=== PATIENT | female | born 1945 | race Caucasian/White ===

== ENCOUNTER 2018-03-06 21:56 | Inpatient (IN) | payer MEDICARE, BC ==
[2018-03-06 22:34] LABS: CHLORIDE,CL 88 mmol/L (98-107); SODIUM,NA 129 mmol/L (136-145)
[2018-03-06] MEDS ORDERED: Insulin Regular, Human 100 Units/ML 3 ML Vial IV STA (23:22)
[2018-03-07] MEDS ORDERED: Warfarin 5 MG Tab PO ONE (00:14)
[2018-03-07] MEDS ORDERED: Calcium Carbonate 500 MG Tab.Chew PO PRN (00:20)
[2018-03-07] MEDS ORDERED: Ondansetron 4 MG Tab.DIS PO PRN (00:30)
[2018-03-07] MEDS ORDERED: Bisacodyl 5 MG Tab PO PRN (00:30)
[2018-03-07] MEDS ORDERED: Acetaminophen 325 MG Tab PO PRN (00:30)
[2018-03-07] MEDS ORDERED: MEPERIDINE HCL 50 MG PO PRN (00:33)
[2018-03-07] MEDS ORDERED: Insulin Regular, Human 100 Units/ML 3 ML Vial SUBCUT ONE ×2 (00:37→23:22)
[2018-03-07] MEDS ORDERED: Sodium Chloride 0.9% 1,000 ML IV ONE (00:39)
--- NOTE | 2018-03-07 00:44 | EDM.PDOC ---
ED HPI GENERAL MEDICAL PROBLEM - General Chief Complaint: General Stated Complaint: high blood sugar Time Seen by Provider: 03/06/18 22:50 Source of Information: Reports: Patient History Limitations: Reports: No Limitations - History of Present Illness INITIAL COMMENTS - FREE TEXT/NARRATIVE: Patient comes in complaining that home blood glucose meter was reading "hi". Recently started on Levemir insulin for Type 2 DM. Has only been checking her blood glucose once a day. Feels as though she has been eating a healthy diet, but admits to eating bread/grains daily. Has thought that her vision has been blurry at times over the past few weeks, and has had increased thirst. Says she has not noticed increased urination but adds that she has urinated frequently her whole life. No other new changes or complaints - Related Data Allergies Allergy/AdvReac Type Severity Reaction Status Date / Time ARYAN Inhibitors Allergy Cannot Verified 03/07/18 00:21 Remember aspirin Allergy Cannot Verified 03/07/18 00:21 Remember levothyroxine sodium Allergy Hives Verified 03/07/18 00:21 [From Synthroid] lisinopril Allergy Rash Verified 03/07/18 00:21 metformin Allergy Cannot Verified 03/07/18 00:21 Remember nitrofurantoin Allergy Cannot Verified 03/07/18 00:21 [From Macrobid] Remember nitrofurantoin Allergy Cannot Verified 03/07/18 00:21 macrocrystalline Remember [From Macrobid] NSAIDS (Non-Steroidal Allergy Cannot Verified 03/07/18 00:21 Anti-Inflamma Remember ramipril [From Altace] Allergy Cannot Verified 03/07/18 00:21 Remember Sulfa (Sulfonamide Allergy Hives Verified 03/07/18 00:21 Antibiotics) valsartan [From Diovan] Allergy Cannot Verified 03/07/18 00:21 Remember Home Meds: Home Meds Atenolol 50 mg PO BEDTIME 09/20/15 [History] Atenolol 50 mg PO DAILY 09/20/15 [History] Cholecalciferol (Vitamin D3) [Vitamin D] 2,000 unit PO DAILY 09/20/15 [History] Meperidine HCl [Demerol] 50 mg PO Q4H PRN 09/20/15 [History] Thyroid,Pork [[place] Thyroid] 15 mg PO DAILY 03/10/16 [History] Thyroid,Pork [[place] Thyroid] 60 mg PO DAILY 09/20/15 [History] Vitamin A 10,000 units PO DAILY 09/20/15 [History] Hydrochlorothiazide [Microzide] 25 mg PO DAILY 03/06/18 [History] Insulin Detemir [Levemir] 6 unit SQ ASDIRECTED 03/06/18 [History] Warfarin [Coumadin] 2.5 mg PO ASDIRECTED 03/06/18 [History] Warfarin [Coumadin] 5 mg PO ASDIRECTED 03/06/18 [History] Past Medical History Cardiovascular History: Reports: Afib, Hypertension Gastrointestinal History: Reports: GERD Endocrine/Metabolic History: Reports: Diabetes, Type II, Hypothyroidism, Other ( See Below) Other Endocrine/Metabolic History: newly diagnosed Immunologic History: Reports: Other (See Below) (Scleroderma. Psoriasis) - Past Surgical History Other HEENT Surgeries/Procedures: cataracts (has not had surgery yet), wears glasses Other Cardiovascular Surgeries/Procedures: pacemaker 2013 Other GI Surgeries/Procedures: history of gastric reflux Other Musculoskeletal Surgeries/Procedures:: left arm pain Social & Family History - Tobacco Use Smoking Status *Q: Never Smoker Second Hand Smoke Exposure: No - Caffeine Use Caffeine Use: Reports: Soda Caffeine Use Comment: occasional Dr Pepper - Alcohol Use Alcohol Use History: Yes Alcohol Use Frequency: Rarely, Socially - Recreational Drug Use Recreational Drug Use: No Drug Use in Last 12 Months: No ED ROS GENERAL - Review of Systems Review Of Systems: See Below Constitutional: Reports: No Symptoms HEENT: Reports: Glasses, Other (vision blurry at times) Respiratory: Reports: No Symptoms Cardiovascular: Reports: No Symptoms Endocrine: Reports: High Glucose, Polydypsia, Polyuria GI/Abdominal: Reports: No Symptoms : Denies: Dysuria, Flank Pain, Pain, Urgency Musculoskeletal: Reports: No Symptoms (no acute changes from baseline) Skin: Reports: No Symptoms (no acute changes) Neurological: Reports: No Symptoms. Denies: Confusion, Dizziness, Difficulty Walking Psychiatric: Reports: No Symptoms Hematologic/Lymphatic: Reports: No Symptoms ED EXAM, GENERAL - Physical Exam Exam: See Below Exam Limited By: No Limitations General Appearance: Alert, WD/WN, No Apparent Distress, Obese Eye Exam: Bilateral Eye: EOMI, PERRL Ears: Normal External Exam, Normal Canal Nose: Normal Inspection Throat/Mouth: Normal Inspection, Normal Lips, Normal Voice, No Airway Compromise Head: Atraumatic, Normocephalic Neck: Normal Inspection, Supple, Non-Tender, Full Range of Motion. No: Lymphadenopathy (L), Lymphadenopathy (R) Respiratory/Chest: No Respiratory Distress, Lungs Clear, Normal Breath Sounds, No Accessory Muscle Use, Chest Non-Tender Cardiovascular: Normal Peripheral Pulses, Regular Rate, Rhythm, No Edema, No Murmur Peripheral Pulses: 2+: Radial (L), Radial (R) GI/Abdominal: Normal Bowel Sounds, Soft, Non-Tender, No Distention, No Mass (Female) Exam: Deferred Rectal (Female) Exam: Deferred Back Exam: Normal Inspection Extremities: Normal Inspection, Normal Range of Motion, Non-Tender, No Pedal Edema, Normal Capillary Refill Neurological: Alert, Oriented, Normal Cognition, Normal Gait, No Motor/Sensory Deficits Psychiatric: Normal Affect, Normal Mood Skin Exam: Warm, Dry, Intact, Normal Color Lymphatic: No Adenopathy Course - Vital Signs Last Recorded V/S: Last Vital Signs Temp 37.1 C 03/06/18 22:00 Pulse 84 03/06/18 22:15 Resp 16 03/06/18 22:15 BP 172/71 H 03/06/18 22:15 Pulse Ox 98 03/06/18 22:15 - Orders/Labs/Meds Orders: Active Orders 24 hr Category Date Time Status URINALYSIS W/MICROSCOPIC [UA W/MICROSCOPIC] [URIN] Stat Lab 03/06/18 22:58 Ordered Medication Orders Acetaminophen (Tylenol) 650 mg PO Q4H PRN PRN Reason: Pain (Mild 1-3)/fever Atenolol (Tenormin) 50 mg PO BEDTIME [facility] Atenolol (Tenormin) 50 mg PO DAILY [facility] Bisacodyl (Dulcolax) 5 mg PO DAILY PRN PRN Reason: Constipation Calcium Carbonate/Glycine (Tums) 1,000 mg PO Q4H PRN PRN Reason: GI upset Hydrochlorothiazide (Hydrochlorothiazide) 25 mg PO DAILY [facility] Sodium Chloride (Normal Saline) 1,000 mls @ 100 mls/hr IV .BOLUS ONE Stop: 03/07/18 10:38 Last Admin: 03/07/18 01:05 Dose: 100 mls/hr Insulin Glargine (Lantus) 0 unit SUBCUT 1300 [facility] Insulin Human Regular (Humulin R) 0 unit SUBCUT TIDAC [facility]; Protocol Non-Formulary Medication (Meperidine Hcl) 50 mg PO Q4H PRN PRN Reason: Other Ondansetron HCl (Zofran Odt) 4 mg PO Q6H PRN PRN Reason: Nausea/Vomiting Thyroid ([place] Thyroid) 15 mg PO DAILY [facility] Thyroid ([place] Thyroid) 60 mg PO DAILY [facility] Warfarin Sodium (Coumadin) 2.5 mg PO [email or web address]@1800 [facility] Warfarin Sodium (Coumadin) 5 mg PO SuTuThSa@1800 [facility] Labs: Laboratory Tests 03/06/18 03/06/18 03/06/18 Range/Units 22:10 22:10 22:10 WBC 5.5 (4.0-10.2) K/uL RBC 5.23 H (3.77-5.09) M/uL Hgb 15.0 (11.7-15.5) g/dL Hct 43.9 (34.0-46.0) % MCV 83.9 L D (84.0-98.0) fL MCH 28.7 (28.2-33.3) pg MCHC 34.2 (31.7-36.0) g/dL RDW 13.3 (11.2-14.1) % Plt Count 91 L (150-350) K/uL Neut % (Auto) 63.9 (45.0-80.0) % Lymph % (Auto) 28.3 (10.0-50.0) % [place] % (Auto) 6.3 (2.0-14.0) % Eos % (Auto) 1.1 (0.0-5.0) % Baso % (Auto) 0.4 (0.0-2.0) % Neut # (Auto) 3.54 (1.40-7.00) K/uL Lymph # (Auto) 1.57 (0.50-3.50) K/uL [place] # (Auto) 0.35 (0.00-1.00) K/uL Eos # (Auto) 0.06 (0.00-0.50) K/uL Baso # (Auto) 0.02 (0.00-0.20) K/uL PT 25.0 H (9.8-11.7) SEC INR 2.3 Sodium 129 L (136-145) mmol/L Potassium 3.7 (3.5-5.1) mmol/L Chloride 88 L (98-107) mmol/L Carbon Dioxide 29.7 (21.0-32.0) mmol/L BUN 17 (7-18) mg/dL Creatinine 0.81 (0.51-1.17) mg/dL Est Cr Clr Drug Dosing TNP Estimated GFR (MDRD) > 60 mL/min Glucose 818 H* (74-106) mg/dL Hemoglobin A1c (4.3-5.7) % Calcium 8.9 (8.5-10.1) mg/dL Magnesium (1.8-2.4) mg/dL Total Bilirubin 0.4 (0.2-1.0) mg/dL AST 41 H (15-37) U/L ALT 35 (12-78) U/L Alkaline Phosphatase 113 (46-116) IU/L Total Protein 7.4 (6.4-8.2) g/dL Albumin 3.5 (3.4-5.0) g/dL Specimen Type Urine Color Urine Appearance Urine pH (5.0-9.0) Ur Specific [place] (1.005-1.030) Urine Protein (NEGATIVE) mg/dL Urine Glucose (UA) (NEGATIVE) mg/dL Urine Ketones (NEGATIVE) mg/dL Urine Occult Blood (NEGATIVE) Urine Nitrite (NEGATIVE) Urine Bilirubin (NEGATIVE) Urine Urobilinogen (0.2-1.0) E.U./dL Ur Leukocyte Esterase (NEGATIVE) Urine RBC /HPF Urine WBC /HPF Ur Epithelial Cells /LPF Urine Bacteria (NONE TO FEW) /HPF Ketones 03/06/18 03/06/18 03/06/18 Range/Units 22:10 22:10 22:10 WBC (4.0-10.2) K/uL RBC (3.77-5.09) M/uL Hgb (11.7-15.5) g/dL Hct (34.0-46.0) % MCV (84.0-98.0) fL MCH (28.2-33.3) pg MCHC (31.7-36.0) g/dL RDW (11.2-14.1) % Plt Count (150-350) K/uL Neut % (Auto) (45.0-80.0) % Lymph % (Auto) (10.0-50.0) % [place] % (Auto) (2.0-14.0) % Eos % (Auto) (0.0-5.0) % Baso % (Auto) (0.0-2.0) % Neut # (Auto) (1.40-7.00) K/uL Lymph # (Auto) (0.50-3.50) K/uL [place] # (Auto) (0.00-1.00) K/uL Eos # (Auto) (0.00-0.50) K/uL Baso # (Auto) (0.00-0.20) K/uL PT (9.8-11.7) SEC INR Sodium (136-145) mmol/L Potassium (3.5-5.1) mmol/L Chloride (98-107) mmol/L Carbon Dioxide (21.0-32.0) mmol/L BUN (7-18) mg/dL Creatinine (0.51-1.17) mg/dL Est Cr Clr Drug Dosing Estimated GFR (MDRD) mL/min Glucose (74-106) mg/dL Hemoglobin A1c > 14.0 H (4.3-5.7) % Calcium (8.5-10.1) mg/dL Magnesium 1.7 L (1.8-2.4) mg/dL Total Bilirubin (0.2-1.0) mg/dL AST (15-37) U/L ALT (12-78) U/L Alkaline Phosphatase (46-116) IU/L Total Protein (6.4-8.2) g/dL Albumin (3.4-5.0) g/dL Specimen Type Urine Color Urine Appearance Urine pH (5.0-9.0) Ur Specific [place] (1.005-1.030) Urine Protein (NEGATIVE) mg/dL Urine Glucose (UA) (NEGATIVE) mg/dL Urine Ketones (NEGATIVE) mg/dL Urine Occult Blood (NEGATIVE) Urine Nitrite (NEGATIVE) Urine Bilirubin (NEGATIVE) Urine Urobilinogen (0.2-1.0) E.U./dL Ur Leukocyte Esterase (NEGATIVE) Urine RBC /HPF Urine WBC /HPF Ur Epithelial Cells /LPF Urine Bacteria (NONE TO FEW) /HPF Ketones Negative 03/06/18 Range/Units 22:58 WBC (4.0-10.2) K/uL RBC (3.77-5.09) M/uL Hgb (11.7-15.5) g/dL Hct (34.0-46.0) % MCV (84.0-98.0) fL MCH (28.2-33.3) pg MCHC (31.7-36.0) g/dL RDW (11.2-14.1) % Plt Count (150-350) K/uL Neut % (Auto) (45.0-80.0) % Lymph % (Auto) (10.0-50.0) % [place] % (Auto) (2.0-14.0) % Eos % (Auto) (0.0-5.0) % Baso % (Auto) (0.0-2.0) % Neut # (Auto) (1.40-7.00) K/uL Lymph # (Auto) (0.50-3.50) K/uL [place] # (Auto) (0.00-1.00) K/uL Eos # (Auto) (0.00-0.50) K/uL Baso # (Auto) (0.00-0.20) K/uL PT (9.8-11.7) SEC INR Sodium (136-145) mmol/L Potassium (3.5-5.1) mmol/L Chloride (98-107) mmol/L Carbon Dioxide (21.0-32.0) mmol/L BUN (7-18) mg/dL Creatinine (0.51-1.17) mg/dL Est Cr Clr Drug Dosing Estimated GFR (MDRD) mL/min Glucose (74-106) mg/dL Hemoglobin A1c (4.3-5.7) % Calcium (8.5-10.1) mg/dL Magnesium (1.8-2.4) mg/dL Total Bilirubin (0.2-1.0) mg/dL AST (15-37) U/L ALT (12-78) U/L Alkaline Phosphatase (46-116) IU/L Total Protein (6.4-8.2) g/dL Albumin (3.4-5.0) g/dL Specimen Type Urinc Urine Color Light yellow Urine Appearance Clear Urine pH 7.0 (5.0-9.0) Ur Specific [place] 1.010 (1.005-1.030) Urine Protein Negative (NEGATIVE) mg/dL Urine Glucose (UA) >=1000 H (NEGATIVE) mg/dL Urine Ketones Negative (NEGATIVE) mg/dL Urine Occult Blood Trace-intact H (NEGATIVE) Urine Nitrite Negative (NEGATIVE) Urine Bilirubin Negative (NEGATIVE) Urine Urobilinogen 0.2 (0.2-1.0) E.U./dL Ur Leukocyte Esterase Negative (NEGATIVE) Urine RBC 0-5 /HPF Urine WBC 0-5 /HPF Ur Epithelial Cells Few /LPF Urine Bacteria Rare (NONE TO FEW) /HPF Ketones Meds: Medications Generic Name Dose Route Start Last Admin Trade Name Freq PRN Reason Stop Dose Admin Acetaminophen 650 mg 03/07/18 00:30 Tylenol PO Q4H PRN Pain (Mild 1-3)/fever Atenolol 50 mg 03/07/18 20:00 Tenormin PO BEDTIME [facility] Atenolol 50 mg 03/07/18 08:00 Tenormin PO DAILY [facility] Bisacodyl 5 mg 03/07/18 00:30 Dulcolax PO DAILY PRN Constipation Calcium Carbonate/Glycine 1,000 mg 03/07/18 00:20 Tums PO Q4H PRN GI upset Hydrochlorothiazide 25 mg 03/07/18 08:00 Hydrochlorothiazide PO DAILY [facility] Sodium Chloride 1,000 mls @ 100 mls/hr 03/07/18 00:39 03/07/18 01:05 Normal Saline IV 03/07/18 10:38 100 mls/hr .BOLUS ONE Administration Insulin Glargine 0 unit 03/07/18 13:00 Lantus SUBCUT 1300 [facility] Insulin Human Regular 0 unit 03/07/18 07:00 Humulin R SUBCUT TIDAC [facility] Protocol Non-Formulary Medication 50 mg 03/07/18 00:33 Meperidine Hcl PO Q4H PRN Other Ondansetron HCl 4 mg 03/07/18 00:30 Zofran Odt PO Q6H PRN Nausea/Vomiting Thyroid 15 mg 03/07/18 08:00 [place] Thyroid PO DAILY [facility] Thyroid 60 mg 03/07/18 08:00 [place] Thyroid PO DAILY [facility] Warfarin Sodium 2.5 mg 03/08/18 18:00 Coumadin PO MoWeFr@1800 [facility] Warfarin Sodium 5 mg 03/07/18 18:00 Coumadin PO SuTuThSa@1800 [facility] Discontinued Medications Generic Name Dose Route Start Last Admin Trade Name Narayan PRN Reason Stop Dose Admin Insulin Human Regular 15 unit 03/07/18 23:22 Humulin R SUBCUT 03/07/18 23:23 ONETIME ONE Insulin Human Regular 15 unit 03/06/18 23:22 03/06/18 23:27 Humulin R IV 03/06/18 23:23 15 units ONETIME STA Administration Insulin Human Regular 8 unit 03/07/18 00:37 03/07/18 01:05 Humulin R SUBCUT 03/07/18 00:38 8 units ONETIME ONE Administration Protocol Warfarin Sodium 5 mg 03/07/18 00:14 03/07/18 01:04 Coumadin PO 03/07/18 00:15 5 mg ONETIME ONE Administration - Re-Assessments/Exams Free Text/Narrative Re-Assessment/Exam: 03/07/18 01:55 Patient received IV after blood glucose noted to be 818. No serum ketones present. Patient says she has chronic microcytosis and thrombocytopenia, which were noted on labs. INR theraputic at 2.3 Na 129, Cl 88 A1c greater than 14 Mg 1.7 Urine showed significant glycosuria. Patient admitted for hyperglycemia. Will perform QIDAC glucose checks. Sliding scale regular insulin added to inpatient regimen. Nursing will work on diabetic teaching so that pt is better able to manage her diabetes at home once discharged. Will receive small amount of maintenance fluids IV NS. Recheck labs in AM. Anticipate 3 day inpatient stay in order to get blood sugars under good control , adjust insulin dosing, and perform intensive diabetic teaching so that patient is able to manage her diabetes better at home. Departure - Departure Time of Disposition: 00:30 Disposition: Admitted As Inpatient 65 Condition: Good Clinical Impression: Scleroderma, Hypomagnesemia, Thrombocytopenia, RBC microcytosis, Chronic anticoagulation, Hyperglycemia Diabetes Qualifiers: Diabetes mellitus type: type 2 Diabetes mellitus care home insulin use: without care home use Diabetes mellitus complication status: without complication Qualified Code(s): E11.9 - Type 2 diabetes mellitus without complications Hypertension Qualifiers: Hypertension type: unspecified Qualified Code(s): I10 - Essential (primary) hypertension Hypothyroid Qualifiers: Hypothyroidism type: unspecified Qualified Code(s): E03.9 - Hypothyroidism, unspecified GERD (gastroesophageal reflux disease) Qualifiers: Esophagitis presence: esophagitis presence not specified Qualified Code(s): K21.9 - Gastro-esophageal reflux disease without esophagitis Afib Qualifiers: Atrial fibrillation type: unspecified Qualified Code(s): I48.91 - Unspecified atrial fibrillation - Discharge Information *PRESCRIPTION DRUG MONITORING PROGRAM REVIEWED*: Not Applicable *COPY OF PRESCRIPTION DRUG MONITORING REPORT IN PATIENT YOUSIF: Not Applicable - Problem List & Annotations (1) Hyperglycemia SNOMED Code(s): 21486819 Code(s): R73.9 - HYPERGLYCEMIA, UNSPECIFIED Status: Acute Priority: High Current Visit: Yes Annotation/Comment:: A1C >14 Patient placed on frequent accuchecks as well as sliding scale insulin. Nursing staff will work on diabetic teaching so that patient is able to manage sugars/diet better at home. (2) Hypomagnesemia SNOMED Code(s): 249750519 Code(s): E83.42 - HYPOMAGNESEMIA Status: Acute Priority: Medium Current Visit: Yes Annotation/Comment:: Will give supplemental magnesium and recheck level. (3) Diabetes SNOMED Code(s): 52274333 Code(s): E11.9 - TYPE 2 DIABETES MELLITUS WITHOUT COMPLICATIONS Status: Chronic Priority: High Current Visit: Yes Qualifiers: Diabetes mellitus type: type 2 Diabetes mellitus care home insulin use: without care home use Diabetes mellitus complication status: without complication Qualified Code(s): E11.9 - Type 2 diabetes mellitus without complications (4) Chronic anticoagulation SNOMED Code(s): 914581399 Code(s): Z79.01 - [employer] (CURRENT) USE OF ANTICOAGULANTS Status: Chronic Priority: Low Current Visit: No Annotation/Comment:: Theraputic INR at 2.3 (5) GERD (gastroesophageal reflux disease) SNOMED Code(s): 055723484 Code(s): K21.9 - GASTRO-ESOPHAGEAL REFLUX DISEASE WITHOUT ESOPHAGITIS Status: Chronic Priority: Low Current Visit: No Annotation/Comment:: Currently stable Qualifiers: Esophagitis presence: esophagitis presence not specified Qualified Code(s) : K21.9 - Gastro-esophageal reflux disease without esophagitis (6) Hypertension SNOMED Code(s): 25098537 Code(s): I10 - ESSENTIAL (PRIMARY) HYPERTENSION Status: Chronic Priority : Low Current Visit: No Annotation/Comment:: Will monitor for trends Qualifiers: Hypertension type: essential hypertension Qualified Code(s): I10 - Essential (primary) hypertension (7) Hypothyroid SNOMED Code(s): 82893607 Code(s): E03.9 - HYPOTHYROIDISM, UNSPECIFIED Status: Chronic Priority: Low Current Visit: No Annotation/Comment:: Will recheck TSH in am (8) RBC microcytosis Status: Chronic Priority: Low Current Visit: No Annotation/Comment:: Chronic, stable, per patient (9) Scleroderma SNOMED Code(s): 53816408 Code(s): M34.9 - SYSTEMIC SCLEROSIS, UNSPECIFIED Status: Chronic Priority : Low Current Visit: No (10) Thrombocytopenia SNOMED Code(s): 625816526 Code(s): D69.6 - THROMBOCYTOPENIA, UNSPECIFIED Status: Chronic Priority: Low Current Visit: No Annotation/Comment:: chronic, stable per patient (11) Afib SNOMED Code(s): 40309207 Code(s): I48.91 - UNSPECIFIED ATRIAL FIBRILLATION Status: Acute Priority : Low Current Visit: No - Problem List Review Problem List Initiated/Reviewed/Updated: Yes - My Orders Last 24 Hours: My Active Orders 03/06/18 22:58 URINALYSIS W/MICROSCOPIC [UA W/MICROSCOPIC] [URIN] Stat - Assessment/Plan Admission H&P: Please use this note as an admission H&P Last 24 Hours: My Active Orders 03/06/18 22:58 URINALYSIS W/MICROSCOPIC [UA W/MICROSCOPIC] [URIN] Stat Assessment:: as above Plan: as above. Anticipate 3-4 day stay in order to achieve stable blood glucose levels, diabetic teaching, and adjustment of insulin dosages.
[2018-03-07] MEDS: Atenolol 50 MG Tab PO SCH ×2 (08:40→20:29)
[2018-03-07] MEDS: Insulin Regular, Human 100 Units/ML 3 ML Vial SUBCUT SCH ×3 (08:41→17:24)
[2018-03-07] MEDS: Hydrochlorothiazide 25 MG Tab PO SCH (08:41)
[2018-03-07 12:03] LABS: CHLORIDE,CL 99 mmol/L (98-107); SODIUM,NA 139 mmol/L (136-145)
[2018-03-07] MEDS ORDERED: Insulin Glargine,Human Rec. Analog 100 Units/ML 10 ML Vial SUBCUT SCH (13:00)
[2018-03-07] MEDS: Warfarin 5 MG Tab PO SCH (17:24)
--- NOTE | 2018-03-07 20:03 | PCM.PN ---
- General Info Date of Service: 03/07/18 Admission Dx/Problem (Free Text): Hyperglycemia Subjective Update: Feels better overall. No new complaints. Functional Status: Reports: Pain Controlled, Tolerating Diet, Ambulating, Urinating. Denies: New Symptoms - Review of Systems General: Reports: No Symptoms HEENT: Reports: No Symptoms, Glasses Pulmonary: Reports: No Symptoms Cardiovascular: Reports: No Symptoms Gastrointestinal: Reports: No Symptoms Genitourinary: Reports: No Symptoms Musculoskeletal: Reports: No Symptoms Skin: Reports: No Symptoms Neurological: Reports: No Symptoms Psychiatric: Reports: No Symptoms - Patient Data Vitals - Most Recent: Last Vital Signs Temp 36.6 C 03/07/18 16:00 Pulse 63 03/07/18 16:00 Resp 16 03/07/18 16:00 BP 146/54 H 03/07/18 16:00 Pulse Ox 97 03/07/18 16:00 Weight - Most Recent: 73.936 kg I&O - Last 24 Hours: Intake & Output 03/07/18 03/07/18 03/07/18 06:59 14:59 22:59 Intake Total 536 1960 Output Total 1100 100 Balance -564 1860 Lab Results Last 24 Hours: Laboratory Results - last 24 hr 03/06/18 03/06/18 03/06/18 Range/Units 22:10 22:10 22:10 WBC 5.5 (4.0-10.2) K/uL RBC 5.23 H (3.77-5.09) M/uL Hgb 15.0 (11.7-15.5) g/dL Hct 43.9 (34.0-46.0) % MCV 83.9 L D (84.0-98.0) fL MCH 28.7 (28.2-33.3) pg MCHC 34.2 (31.7-36.0) g/dL RDW 13.3 (11.2-14.1) % Plt Count 91 L (150-350) K/uL Neut % (Auto) 63.9 (45.0-80.0) % Lymph % (Auto) 28.3 (10.0-50.0) % Giles % (Auto) 6.3 (2.0-14.0) % Eos % (Auto) 1.1 (0.0-5.0) % Baso % (Auto) 0.4 (0.0-2.0) % Neut # (Auto) 3.54 (1.40-7.00) K/uL Lymph # (Auto) 1.57 (0.50-3.50) K/uL Giles # (Auto) 0.35 (0.00-1.00) K/uL Eos # (Auto) 0.06 (0.00-0.50) K/uL Baso # (Auto) 0.02 (0.00-0.20) K/uL PT 25.0 H (9.8-11.7) SEC INR 2.3 Sodium 129 L (136-145) mmol/L Potassium 3.7 (3.5-5.1) mmol/L Chloride 88 L (98-107) mmol/L Carbon Dioxide 29.7 (21.0-32.0) mmol/L BUN 17 (7-18) mg/dL Creatinine 0.81 (0.51-1.17) mg/dL Est Cr Clr Drug Dosing TNP Estimated GFR (MDRD) > 60 mL/min Glucose 818 H* (74-106) mg/dL POC Glucose (65-110) mg/dl Hemoglobin A1c (4.3-5.7) % Calcium 8.9 (8.5-10.1) mg/dL Magnesium (1.8-2.4) mg/dL Total Bilirubin 0.4 (0.2-1.0) mg/dL AST 41 H (15-37) U/L ALT 35 (12-78) U/L Alkaline Phosphatase 113 (46-116) IU/L Total Protein 7.4 (6.4-8.2) g/dL Albumin 3.5 (3.4-5.0) g/dL TSH, Ultra Sensitive (0.358-3.740) mIU/mL Specimen Type Urine Color Urine Appearance Urine pH (5.0-9.0) Ur Specific [place] (1.005-1.030) Urine Protein (NEGATIVE) mg/dL Urine Glucose (UA) (NEGATIVE) mg/dL Urine Ketones (NEGATIVE) mg/dL Urine Occult Blood (NEGATIVE) Urine Nitrite (NEGATIVE) Urine Bilirubin (NEGATIVE) Urine Urobilinogen (0.2-1.0) E.U./dL Ur Leukocyte Esterase (NEGATIVE) Urine RBC /HPF Urine WBC /HPF Ur Epithelial Cells /LPF Urine Bacteria (NONE TO FEW) /HPF Ketones 03/06/18 03/06/18 03/06/18 Range/Units 22:10 22:10 22:10 WBC (4.0-10.2) K/uL RBC (3.77-5.09) M/uL Hgb (11.7-15.5) g/dL Hct (34.0-46.0) % MCV (84.0-98.0) fL MCH (28.2-33.3) pg MCHC (31.7-36.0) g/dL RDW (11.2-14.1) % Plt Count (150-350) K/uL Neut % (Auto) (45.0-80.0) % Lymph % (Auto) (10.0-50.0) % Giles % (Auto) (2.0-14.0) % Eos % (Auto) (0.0-5.0) % Baso % (Auto) (0.0-2.0) % Neut # (Auto) (1.40-7.00) K/uL Lymph # (Auto) (0.50-3.50) K/uL Giles # (Auto) (0.00-1.00) K/uL Eos # (Auto) (0.00-0.50) K/uL Baso # (Auto) (0.00-0.20) K/uL PT (9.8-11.7) SEC INR Sodium (136-145) mmol/L Potassium (3.5-5.1) mmol/L Chloride (98-107) mmol/L Carbon Dioxide (21.0-32.0) mmol/L BUN (7-18) mg/dL Creatinine (0.51-1.17) mg/dL Est Cr Clr Drug Dosing Estimated GFR (MDRD) mL/min Glucose (74-106) mg/dL POC Glucose (65-110) mg/dl Hemoglobin A1c > 14.0 H (4.3-5.7) % Calcium (8.5-10.1) mg/dL Magnesium 1.7 L (1.8-2.4) mg/dL Total Bilirubin (0.2-1.0) mg/dL AST (15-37) U/L ALT (12-78) U/L Alkaline Phosphatase (46-116) IU/L Total Protein (6.4-8.2) g/dL Albumin (3.4-5.0) g/dL TSH, Ultra Sensitive (0.358-3.740) mIU/mL Specimen Type Urine Color Urine Appearance Urine pH (5.0-9.0) Ur Specific [place] (1.005-1.030) Urine Protein (NEGATIVE) mg/dL Urine Glucose (UA) (NEGATIVE) mg/dL Urine Ketones (NEGATIVE) mg/dL Urine Occult Blood (NEGATIVE) Urine Nitrite (NEGATIVE) Urine Bilirubin (NEGATIVE) Urine Urobilinogen (0.2-1.0) E.U./dL Ur Leukocyte Esterase (NEGATIVE) Urine RBC /HPF Urine WBC /HPF Ur Epithelial Cells /LPF Urine Bacteria (NONE TO FEW) /HPF Ketones Negative 03/06/18 03/07/18 03/07/18 Range/Units 22:58 00:24 01:01 WBC (4.0-10.2) K/uL RBC (3.77-5.09) M/uL Hgb (11.7-15.5) g/dL Hct (34.0-46.0) % MCV (84.0-98.0) fL MCH (28.2-33.3) pg MCHC (31.7-36.0) g/dL RDW (11.2-14.1) % Plt Count (150-350) K/uL Neut % (Auto) (45.0-80.0) % Lymph % (Auto) (10.0-50.0) % Giles % (Auto) (2.0-14.0) % Eos % (Auto) (0.0-5.0) % Baso % (Auto) (0.0-2.0) % Neut # (Auto) (1.40-7.00) K/uL Lymph # (Auto) (0.50-3.50) K/uL Giles # (Auto) (0.00-1.00) K/uL Eos # (Auto) (0.00-0.50) K/uL Baso # (Auto) (0.00-0.20) K/uL PT (9.8-11.7) SEC INR Sodium (136-145) mmol/L Potassium (3.5-5.1) mmol/L Chloride (98-107) mmol/L Carbon Dioxide (21.0-32.0) mmol/L BUN (7-18) mg/dL Creatinine (0.51-1.17) mg/dL Est Cr Clr Drug Dosing Estimated GFR (MDRD) mL/min Glucose (74-106) mg/dL POC Glucose 375 H* 337 H* (65-110) mg/dl Hemoglobin A1c (4.3-5.7) % Calcium (8.5-10.1) mg/dL Magnesium (1.8-2.4) mg/dL Total Bilirubin (0.2-1.0) mg/dL AST (15-37) U/L ALT (12-78) U/L Alkaline Phosphatase (46-116) IU/L Total Protein (6.4-8.2) g/dL Albumin (3.4-5.0) g/dL TSH, Ultra Sensitive (0.358-3.740) mIU/mL Specimen Type Urincc Urine Color Light yellow Urine Appearance Clear Urine pH 7.0 (5.0-9.0) Ur Specific [place] 1.010 (1.005-1.030) Urine Protein Negative (NEGATIVE) mg/dL Urine Glucose (UA) >=1000 H (NEGATIVE) mg/dL Urine Ketones Negative (NEGATIVE) mg/dL Urine Occult Blood Trace-intact H (NEGATIVE) Urine Nitrite Negative (NEGATIVE) Urine Bilirubin Negative (NEGATIVE) Urine Urobilinogen 0.2 (0.2-1.0) E.U./dL Ur Leukocyte Esterase Negative (NEGATIVE) Urine RBC 0-5 /HPF Urine WBC 0-5 /HPF Ur Epithelial Cells Few /LPF Urine Bacteria Rare (NONE TO FEW) /HPF Ketones 03/07/18 03/07/18 03/07/18 Range/Units 03:12 07:36 11:24 WBC (4.0-10.2) K/uL RBC (3.77-5.09) M/uL Hgb (11.7-15.5) g/dL Hct (34.0-46.0) % MCV (84.0-98.0) fL MCH (28.2-33.3) pg MCHC (31.7-36.0) g/dL RDW (11.2-14.1) % Plt Count (150-350) K/uL Neut % (Auto) (45.0-80.0) % Lymph % (Auto) (10.0-50.0) % Giles % (Auto) (2.0-14.0) % Eos % (Auto) (0.0-5.0) % Baso % (Auto) (0.0-2.0) % Neut # (Auto) (1.40-7.00) K/uL Lymph # (Auto) (0.50-3.50) K/uL Giles # (Auto) (0.00-1.00) K/uL Eos # (Auto) (0.00-0.50) K/uL Baso # (Auto) (0.00-0.20) K/uL PT (9.8-11.7) SEC INR Sodium (136-145) mmol/L Potassium (3.5-5.1) mmol/L Chloride (98-107) mmol/L Carbon Dioxide (21.0-32.0) mmol/L BUN (7-18) mg/dL Creatinine (0.51-1.17) mg/dL Est Cr Clr Drug Dosing Estimated GFR (MDRD) mL/min Glucose (74-106) mg/dL POC Glucose 322 H* 260 H* 371 H* (65-110) mg/dl Hemoglobin A1c (4.3-5.7) % Calcium (8.5-10.1) mg/dL Magnesium (1.8-2.4) mg/dL Total Bilirubin (0.2-1.0) mg/dL AST (15-37) U/L ALT (12-78) U/L Alkaline Phosphatase (46-116) IU/L Total Protein (6.4-8.2) g/dL Albumin (3.4-5.0) g/dL TSH, Ultra Sensitive (0.358-3.740) mIU/mL Specimen Type Urine Color Urine Appearance Urine pH (5.0-9.0) Ur Specific [place] (1.005-1.030) Urine Protein (NEGATIVE) mg/dL Urine Glucose (UA) (NEGATIVE) mg/dL Urine Ketones (NEGATIVE) mg/dL Urine Occult Blood (NEGATIVE) Urine Nitrite (NEGATIVE) Urine Bilirubin (NEGATIVE) Urine Urobilinogen (0.2-1.0) E.U./dL Ur Leukocyte Esterase (NEGATIVE) Urine RBC /HPF Urine WBC /HPF Ur Epithelial Cells /LPF Urine Bacteria (NONE TO FEW) /HPF Ketones 03/07/18 03/07/18 03/07/18 Range/Units 11:30 11:30 11:30 WBC 5.0 (4.0-10.2) K/uL RBC 4.81 (3.77-5.09) M/uL Hgb 13.7 (11.7-15.5) g/dL Hct 39.1 (34.0-46.0) % MCV 81.3 L (84.0-98.0) fL MCH 28.5 (28.2-33.3) pg MCHC 35.0 (31.7-36.0) g/dL RDW 13.5 (11.2-14.1) % Plt Count 88 L (150-350) K/uL Neut % (Auto) 56.2 (45.0-80.0) % Lymph % (Auto) 34.2 (10.0-50.0) % Giles % (Auto) 7.6 (2.0-14.0) % Eos % (Auto) 1.8 (0.0-5.0) % Baso % (Auto) 0.2 (0.0-2.0) % Neut # (Auto) 2.83 (1.40-7.00) K/uL Lymph # (Auto) 1.72 (0.50-3.50) K/uL Giles # (Auto) 0.38 (0.00-1.00) K/uL Eos # (Auto) 0.09 (0.00-0.50) K/uL Baso # (Auto) 0.01 (0.00-0.20) K/uL PT (9.8-11.7) SEC INR Sodium 139 D (136-145) mmol/L Potassium 3.4 L (3.5-5.1) mmol/L Chloride 99 (98-107) mmol/L Carbon Dioxide 31.4 (21.0-32.0) mmol/L BUN 15 (7-18) mg/dL Creatinine 0.59 (0.51-1.17) mg/dL Est Cr Clr Drug Dosing 60.09 Estimated GFR (MDRD) > 60 mL/min Glucose 380 H (74-106) mg/dL POC Glucose (65-110) mg/dl Hemoglobin A1c (4.3-5.7) % Calcium 9.1 (8.5-10.1) mg/dL Magnesium 1.7 L (1.8-2.4) mg/dL Total Bilirubin (0.2-1.0) mg/dL AST (15-37) U/L ALT (12-78) U/L Alkaline Phosphatase (46-116) IU/L Total Protein (6.4-8.2) g/dL Albumin (3.4-5.0) g/dL TSH, Ultra Sensitive 3.897 H (0.358-3.740) mIU/mL Specimen Type Urine Color Urine Appearance Urine pH (5.0-9.0) Ur Specific [place] (1.005-1.030) Urine Protein (NEGATIVE) mg/dL Urine Glucose (UA) (NEGATIVE) mg/dL Urine Ketones (NEGATIVE) mg/dL Urine Occult Blood (NEGATIVE) Urine Nitrite (NEGATIVE) Urine Bilirubin (NEGATIVE) Urine Urobilinogen (0.2-1.0) E.U./dL Ur Leukocyte Esterase (NEGATIVE) Urine RBC /HPF Urine WBC /HPF Ur Epithelial Cells /LPF Urine Bacteria (NONE TO FEW) /HPF Ketones 03/07/18 Range/Units 16:55 WBC (4.0-10.2) K/uL RBC (3.77-5.09) M/uL Hgb (11.7-15.5) g/dL Hct (34.0-46.0) % MCV (84.0-98.0) fL MCH (28.2-33.3) pg MCHC (31.7-36.0) g/dL RDW (11.2-14.1) % Plt Count (150-350) K/uL Neut % (Auto) (45.0-80.0) % Lymph % (Auto) (10.0-50.0) % Giles % (Auto) (2.0-14.0) % Eos % (Auto) (0.0-5.0) % Baso % (Auto) (0.0-2.0) % Neut # (Auto) (1.40-7.00) K/uL Lymph # (Auto) (0.50-3.50) K/uL Giles # (Auto) (0.00-1.00) K/uL Eos # (Auto) (0.00-0.50) K/uL Baso # (Auto) (0.00-0.20) K/uL PT (9.8-11.7) SEC INR Sodium (136-145) mmol/L Potassium (3.5-5.1) mmol/L Chloride (98-107) mmol/L Carbon Dioxide (21.0-32.0) mmol/L BUN (7-18) mg/dL Creatinine (0.51-1.17) mg/dL Est Cr Clr Drug Dosing Estimated GFR (MDRD) mL/min Glucose (74-106) mg/dL POC Glucose 306 H* (65-110) mg/dl Hemoglobin A1c (4.3-5.7) % Calcium (8.5-10.1) mg/dL Magnesium (1.8-2.4) mg/dL Total Bilirubin (0.2-1.0) mg/dL AST (15-37) U/L ALT (12-78) U/L Alkaline Phosphatase (46-116) IU/L Total Protein (6.4-8.2) g/dL Albumin (3.4-5.0) g/dL TSH, Ultra Sensitive (0.358-3.740) mIU/mL Specimen Type Urine Color Urine Appearance Urine pH (5.0-9.0) Ur Specific [place] (1.005-1.030) Urine Protein (NEGATIVE) mg/dL Urine Glucose (UA) (NEGATIVE) mg/dL Urine Ketones (NEGATIVE) mg/dL Urine Occult Blood (NEGATIVE) Urine Nitrite (NEGATIVE) Urine Bilirubin (NEGATIVE) Urine Urobilinogen (0.2-1.0) E.U./dL Ur Leukocyte Esterase (NEGATIVE) Urine RBC /HPF Urine WBC /HPF Ur Epithelial Cells /LPF Urine Bacteria (NONE TO FEW) /HPF Ketones Med Orders - Current: Current Medications Acetaminophen (Tylenol) 650 mg PO Q4H PRN PRN Reason: Pain (Mild 1-3)/fever Atenolol (Tenormin) 50 mg PO BEDTIME [facility] Atenolol (Tenormin) 50 mg PO DAILY [facility] Last Admin: 03/07/18 08:40 Dose: 50 mg Bisacodyl (Dulcolax) 5 mg PO DAILY PRN PRN Reason: Constipation Calcium Carbonate/Glycine (Tums) 1,000 mg PO Q4H PRN PRN Reason: GI upset Last Admin: 03/07/18 04:02 Dose: 1,000 mg Hydrochlorothiazide (Hydrochlorothiazide) 25 mg PO DAILY [facility] Last Admin: 03/07/18 08:41 Dose: 25 mg Insulin Glargine (Lantus) 10 unit SUBCUT DAILY@1300 [place] Insulin Human Regular (Humulin R) 0 unit SUBCUT TIDAC [facility]; Protocol Last Admin: 03/07/18 17:24 Dose: 8 units Magnesium Oxide (Magnesium Oxide) 400 mg PO DAILY [facility] Non-Formulary Medication (Meperidine Hcl) 50 mg PO Q4H PRN PRN Reason: Other Ondansetron HCl (Zofran Odt) 4 mg PO Q6H PRN PRN Reason: Nausea/Vomiting Potassium Chloride (Klor-Con M20) 20 meq PO WITHBREAKFAST [facility] Thyroid ([place] Thyroid) 90 mg PO DAILY [facility] Warfarin Sodium (Coumadin) 2.5 mg PO MoWeFr@1800 [facility] Warfarin Sodium (Coumadin) 5 mg PO SuTuThSa@1800 [facility] Last Admin: 03/07/18 17:24 Dose: 5 mg Discontinued Medications Sodium Chloride (Normal Saline) 1,000 mls @ 100 mls/hr IV .BOLUS ONE Stop: 03/07/18 10:38 Last Admin: 03/07/18 01:05 Dose: 100 mls/hr Insulin Glargine (Lantus) 0 unit SUBCUT 1300 [facility] Last Admin: 03/07/18 13:00 Dose: 6 unit Insulin Human Regular (Humulin R) 15 unit SUBCUT ONETIME ONE Stop: 03/07/18 23:23 Insulin Human Regular (Humulin R) 15 unit IV ONETIME STA Stop: 03/06/18 23:23 Last Admin: 03/06/18 23:27 Dose: 15 units Insulin Human Regular (Humulin R) 8 unit SUBCUT ONETIME ONE; Protocol Stop: 03/07/18 00:38 Last Admin: 03/07/18 01:05 Dose: 8 units Magnesium Sulfate/Dextrose (Magnesium 1 Gm In D5w 100 Ml) 1 gm IV ONETIME ONE Stop: 03/07/18 06:01 Magnesium Sulfate/Dextrose (Magnesium 1 Gm In D5w 100 Ml) 1 gm IV ONETIME ONE Stop: 03/07/18 03:37 Last Admin: 03/07/18 03:59 Dose: 1 gm Thyroid ([place] Thyroid) 15 mg PO DAILY [facility] Last Admin: 03/07/18 08:39 Dose: 15 mg Thyroid ([place] Thyroid) 60 mg PO DAILY [facility] Last Admin: 03/07/18 08:40 Dose: 60 mg Warfarin Sodium (Coumadin) 5 mg PO ONETIME ONE Stop: 03/07/18 00:15 Last Admin: 03/07/18 01:04 Dose: 5 mg - Exam Quality Assessment: DVT Prophylaxis (patient ambulating/joe hose) General: Alert, Oriented, Cooperative, No Acute Distress HEENT: Pupils Equal, Pupils Reactive, EOMI, Mucous Membr. Moist/[place]din Neck: Supple Lungs: Clear to Auscultation, Normal Respiratory Effort Cardiovascular: Regular Rate, Regular Rhythm GI/Abdominal Exam: Normal Bowel Sounds, Soft, Non-Tender, No Distention Extremities: Normal Inspection, Normal Capillary Refill Skin: Warm, Dry, Intact Neurological: No New Focal Deficit Psy/Mental Status: Alert, Normal Affect, Normal Mood - Problem List & Annotations (1) Hyperglycemia SNOMED Code(s): 11003524 Code(s): R73.9 - HYPERGLYCEMIA, UNSPECIFIED Status: Acute Priority: High Current Visit: Yes Annotation/Comment:: A1C >14 Patient placed on frequent accuchecks as well as sliding scale insulin. Nursing staff will work on diabetic teaching so that patient is able to manage sugars/diet better at home. Blood glucosed continue to run in 300s. Patient remarked that she is eating more carbs here on the ADA diet than she eats at home. For now, Lantus increased to 10u daily, sliding scale continued. (2) Hypomagnesemia SNOMED Code(s): 082751608 Code(s): E83.42 - HYPOMAGNESEMIA Status: Acute Priority: Medium Current Visit: Yes Annotation/Comment:: Will give supplemental magnesium and recheck level. 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 Status: Chronic Priority: Low Current Visit: No Annotation/Comment:: Theraputic INR at 2.3 (5) GERD (gastroesophageal reflux disease) SNOMED Code(s): 272799965 Code(s): K21.9 - GASTRO-ESOPHAGEAL REFLUX DISEASE WITHOUT ESOPHAGITIS Status: Chronic Priority: Low Current Visit: No Qualifiers: Esophagitis presence: esophagitis presence not specified Qualified Code(s) : K21.9 - Gastro-esophageal reflux disease without esophagitis Annotation/Comment:: Currently stable (6) Hypertension SNOMED Code(s): 94566650 Code(s): I10 - ESSENTIAL (PRIMARY) HYPERTENSION Status: Chronic Priority : Low Current Visit: No Qualifiers: Hypertension type: essential hypertension Qualified Code(s): I10 - Essential (primary) hypertension Annotation/Comment:: Will monitor for trends (7) Hypothyroid SNOMED Code(s): 91844573 Code(s): E03.9 - HYPOTHYROIDISM, UNSPECIFIED Status: Chronic Priority: Low Current Visit: No Qualifiers: Hypothyroidism type: unspecified Qualified Code(s): E03.9 - Hypothyroidism , unspecified Annotation/Comment:: Elevated TSH, will increase [place] dose (8) RBC microcytosis Status: Chronic Priority: Low Current Visit: No Annotation/Comment:: Chronic, stable, per patient (9) Scleroderma SNOMED Code(s): 17461231 Code(s): M34.9 - SYSTEMIC SCLEROSIS, UNSPECIFIED Status: Chronic Priority : Low Current Visit: No (10) Thrombocytopenia SNOMED Code(s): 338820511 Code(s): D69.6 - THROMBOCYTOPENIA, UNSPECIFIED Status: Chronic Priority: Low Current Visit: No Annotation/Comment:: chronic, stable per patient (11) Afib SNOMED Code(s): 81622288 Code(s): I48.91 - UNSPECIFIED ATRIAL FIBRILLATION Status: Acute Priority : Low Current Visit: No Qualifiers: Atrial fibrillation type: unspecified Qualified Code(s): I48.91 - Unspecified atrial fibrillation (12) Hypokalemia SNOMED Code(s): 80524409 Code(s): E87.6 - HYPOKALEMIA Status: Acute Priority: Low Current Visit : Yes Annotation/Comment:: Supplemental K started. - Problem List Review Problem List Initiated/Reviewed/Updated: Yes - My Orders Last 24 Hours: My Active Orders 03/06/18 22:58 URINALYSIS W/MICROSCOPIC [UA W/MICROSCOPIC] [URIN] Stat 03/07/18 00:20 Calcium Carbonate [Tums] 1,000 mg PO Q4H PRN 03/07/18 00:30 Patient Status [ADT] Routine Blood Glucose Check, Bedside [RC] QIDACANDBED Height and Weight [RC] .PRN May Shower [RC] ASDIRECTED Oxygen Therapy [RC] .PRN Up ad Shonna [RC] ASDIRECTED VTE/DVT Education [RC] .PRN Vital Signs [RC] QID Acetaminophen [Tylenol] 650 mg PO Q4H PRN Bisacodyl [Dulcolax] 5 mg PO DAILY PRN Ondansetron [Zofran ODT] 4 mg PO Q6H PRN Resuscitation Status Routine 03/07/18 00:31 Cardiac Monitoring [RC] Q2HR Intake and Output [RC] 06,14,22 Pulse Oximetry [RC] .PRN 03/07/18 00:32 Ambulate [RC] PER UNIT ROUTINE Antiembolic Hose [OM.PC] Per Unit Routine 03/07/18 00:33 Meperidine HCl 50 mg PO Q4H PRN 03/07/18 07:00 Insulin Regular, Human [HumuLIN R] See Protocol SUBCUT TIDAC 03/07/18 08:00 Atenolol [Tenormin] 50 mg PO DAILY hydroCHLOROthiazide 25 mg PO DAILY 03/07/18 18:00 Warfarin [Coumadin] 5 mg PO SuTuThSa@1800 03/07/18 20:00 Atenolol [Tenormin] 50 mg PO BEDTIME 03/07/18 Breakfast [employer] Diet [DIET] Fluid Restriction [DIET] 03/08/18 08:00 Magnesium Oxide 400 mg PO DAILY Potassium Chloride [Klor-Con 10] 20 meq PO WITHBREAKFAST Thyroid [[place] Thyroid] 90 mg PO DAILY 03/08/18 13:00 Insulin Glarg,Human.Rec.Analog [LantUS] 10 unit SUBCUT 1300 03/08/18 18:00 Warfarin [Coumadin] 2.5 mg PO MoWeFr@1800 - Assessment Assessment:: Hyperglycemia, poor control in Type 2 diabetic - Plan Plan:: Continue accuchecks/insulin adjustment. Supplemental Mag/K. Thyroid increased to 90mg/daily as TSH elevated today. Anticipate 2 more days inpatient stay while we attempt to obtain improved control of patient's blood sugars.
[2018-03-08] MEDS: Hydrochlorothiazide 25 MG Tab PO SCH (08:14)
[2018-03-08] MEDS: Potassium Chloride 20 MEQ Tab.ER PO SCH (08:14)
[2018-03-08] MEDS: Atenolol 50 MG Tab PO SCH ×2 (08:14→21:40)
[2018-03-08] MEDS: Magnesium Oxide 400 MG Tab PO SCH (08:14)
[2018-03-08] MEDS: Insulin Regular, Human 100 Units/ML 3 ML Vial SUBCUT SCH ×3 (08:17→17:21)
[2018-03-08] MEDS: Sodium Chloride 0.9% 10 ML Syringe FLUSH SCH ×2 (12:04→21:45)
[2018-03-08] MEDS ORDERED: Insulin Glargine,Human Rec. Analog 100 Units/ML 10 ML Vial SUBCUT SCH (13:00)
--- NOTE | 2018-03-08 16:17 | PCM.PN ---
- General Info Date of Service: 03/08/18 Admission Dx/Problem (Free Text): Hyperglycemia Subjective Update: Feels better overall. No new complaints. Functional Status: Reports: Pain Controlled, Tolerating Diet, Ambulating, Urinating. Denies: New Symptoms - Review of Systems General: Reports: No Symptoms HEENT: Reports: No Symptoms, Glasses Pulmonary: Reports: No Symptoms Cardiovascular: Reports: No Symptoms Gastrointestinal: Reports: No Symptoms Genitourinary: Reports: No Symptoms Musculoskeletal: Reports: No Symptoms Skin: Reports: No Symptoms Neurological: Reports: No Symptoms Psychiatric: Reports: No Symptoms - Patient Data Vitals - Most Recent: Last Vital Signs Temp 36.7 C 03/08/18 15:09 Pulse 64 03/08/18 15:09 Resp 16 03/08/18 15:09 BP 139/62 03/08/18 15:09 Pulse Ox 96 03/08/18 15:09 Weight - Most Recent: 73.936 kg I&O - Last 24 Hours: Intake & Output 03/08/18 03/08/18 03/08/18 06:59 14:59 22:59 Intake Total 300 240 Output Total 1000 Balance -700 240 Lab Results Last 24 Hours: Laboratory Results - last 24 hr 03/07/18 03/07/18 03/08/18 Range/Units 16:55 20:46 08:19 POC Glucose 306 H* 357 H* 273 H* (65-110) mg/dl 03/08/18 03/08/18 03/08/18 Range/Units 11:12 12:47 14:56 POC Glucose 420 H* 455 H* 330 H* (65-110) mg/dl Med Orders - Current: Current Medications Acetaminophen (Tylenol) 650 mg PO Q4H PRN PRN Reason: Pain (Mild 1-3)/fever Atenolol (Tenormin) 50 mg PO BEDTIME [facility] Last Admin: 03/07/18 20:29 Dose: 50 mg Atenolol (Tenormin) 50 mg PO DAILY [facility] Last Admin: 03/08/18 08:14 Dose: 50 mg Bisacodyl (Dulcolax) 5 mg PO DAILY PRN PRN Reason: Constipation Calcium Carbonate/Glycine (Tums) 1,000 mg PO Q4H PRN PRN Reason: GI upset Last Admin: 03/07/18 04:02 Dose: 1,000 mg Hydrochlorothiazide (Hydrochlorothiazide) 25 mg PO DAILY [facility] Last Admin: 03/08/18 08:14 Dose: 25 mg Insulin Glargine (Lantus) 10 unit SUBCUT Q12HR [facility] Insulin Human Regular (Humulin R) 0 unit SUBCUT TIDAC [facility]; Protocol Last Admin: 03/08/18 11:43 Dose: 15 units Magnesium Oxide (Magnesium Oxide) 400 mg PO DAILY [facility] Last Admin: 03/08/18 08:14 Dose: 400 mg Non-Formulary Medication (Meperidine Hcl) 50 mg PO Q4H PRN PRN Reason: Other Ondansetron HCl (Zofran Odt) 4 mg PO Q6H PRN PRN Reason: Nausea/Vomiting Potassium Chloride (Klor-Con M20) 20 meq PO WITHBREAKFAST [facility] Last Admin: 03/08/18 08:14 Dose: 20 meq Sodium Chloride (Saline Flush) 10 ml FLUSH Q12H [facility] Last Admin: 03/08/18 12:04 Dose: Not Given Thyroid ([place] Thyroid) 90 mg PO DAILY [facility] Last Admin: 03/08/18 08:14 Dose: 90 mg Warfarin Sodium (Coumadin) 2.5 mg PO MoWeFr@1800 [facility] Warfarin Sodium (Coumadin) 5 mg PO SuTuThSa@1800 [facility] Last Admin: 03/07/18 17:24 Dose: 5 mg Discontinued Medications Sodium Chloride (Normal Saline) 1,000 mls @ 100 mls/hr IV .BOLUS ONE Stop: 03/07/18 10:38 Last Admin: 03/07/18 01:05 Dose: 100 mls/hr Insulin Glargine (Lantus) 0 unit SUBCUT 1300 [facility] Last Admin: 03/07/18 13:00 Dose: 6 unit Insulin Glargine (Lantus) 10 unit SUBCUT DAILY@1300 [facility] Last Admin: 03/08/18 13:04 Dose: 10 unit Insulin Human Regular (Humulin R) 15 unit SUBCUT ONETIME ONE Stop: 03/07/18 23:23 Insulin Human Regular (Humulin R) 15 unit IV ONETIME STA Stop: 03/06/18 23:23 Last Admin: 03/06/18 23:27 Dose: 15 units Insulin Human Regular (Humulin R) 8 unit SUBCUT ONETIME ONE; Protocol Stop: 03/07/18 00:38 Last Admin: 03/07/18 01:05 Dose: 8 units Magnesium Sulfate/Dextrose (Magnesium 1 Gm In D5w 100 Ml) 1 gm IV ONETIME ONE Stop: 03/07/18 06:01 Magnesium Sulfate/Dextrose (Magnesium 1 Gm In D5w 100 Ml) 1 gm IV ONETIME ONE Stop: 03/07/18 03:37 Last Admin: 03/07/18 03:59 Dose: 1 gm Thyroid ([place] Thyroid) 15 mg PO DAILY [facility] Last Admin: 03/07/18 08:39 Dose: 15 mg Thyroid ([place] Thyroid) 60 mg PO DAILY [facility] Last Admin: 03/08/18 12:05 Dose: Not Given Warfarin Sodium (Coumadin) 5 mg PO ONETIME ONE Stop: 03/07/18 00:15 Last Admin: 03/07/18 01:04 Dose: 5 mg - Exam Quality Assessment: DVT Prophylaxis General: Alert, Oriented, Cooperative, No Acute Distress HEENT: Pupils Equal, Pupils Reactive, EOMI Neck: Supple Lungs: Clear to Auscultation, Normal Respiratory Effort Cardiovascular: Regular Rate, Regular Rhythm GI/Abdominal Exam: Normal Bowel Sounds, Soft, Non-Tender, No Distention (Female) Exam: Deferred Back Exam: No: CVA Tenderness (L), CVA Tenderness (R) Extremities: Normal Inspection Peripheral Pulses: 2+: Radial (L), Radial (R) Skin: Warm, Dry, Intact Neurological: No New Focal Deficit Psy/Mental Status: Alert, Normal Affect, Normal Mood - Problem List & Annotations (1) Hyperglycemia SNOMED Code(s): 70319181 Code(s): R73.9 - HYPERGLYCEMIA, UNSPECIFIED Status: Acute Priority: High Current Visit: Yes Annotation/Comment:: A1C >14 Patient placed on frequent accuchecks as well as sliding scale insulin. Nursing staff will work on diabetic teaching so that patient is able to manage sugars/diet better at home. Blood glucose continues to be significantly elevated, 300-420. Patient remarked that she is eating more carbs here on the ADA diet than she eats at home. Lantus increased to 10u BID, sliding scale continued. (2) Hypomagnesemia SNOMED Code(s): 120717813 Code(s): E83.42 - HYPOMAGNESEMIA Status: Acute Priority: Medium Current Visit: Yes Annotation/Comment:: Will give supplemental magnesium and recheck level. (3) Diabetes SNOMED Code(s): 79945345 Code(s): E11.9 - TYPE 2 DIABETES MELLITUS WITHOUT COMPLICATIONS Status: Chronic Priority: High Current Visit: Yes Qualifiers: Diabetes mellitus type: type 2 Diabetes mellitus taxation consultant insulin use: without long-term use Diabetes mellitus complication status: without complication Qualified Code(s): E11.9 - Type 2 diabetes mellitus without complications (4) Chronic anticoagulation SNOMED Code(s): 342239872 Code(s): Z79.01 - ADVANCED MANAGER (CURRENT) USE OF ANTICOAGULANTS Status: Chronic Priority: Low Current Visit: No Annotation/Comment:: Theraputic INR at 2.3 (5) GERD (gastroesophageal reflux disease) SNOMED Code(s): 430437583 Code(s): K21.9 - GASTRO-ESOPHAGEAL REFLUX DISEASE WITHOUT ESOPHAGITIS Status: Chronic Priority: Low Current Visit: No Qualifiers: Esophagitis presence: esophagitis presence not specified Qualified Code(s) : K21.9 - Gastro-esophageal reflux disease without esophagitis Annotation/Comment:: Currently stable (6) Hypertension SNOMED Code(s): 59359848 Code(s): I10 - ESSENTIAL (PRIMARY) HYPERTENSION Status: Chronic Priority : Low Current Visit: No Qualifiers: Hypertension type: essential hypertension Qualified Code(s): I10 - Essential (primary) hypertension Annotation/Comment:: Will monitor for trends (7) Hypothyroid SNOMED Code(s): 39027171 Code(s): E03.9 - HYPOTHYROIDISM, UNSPECIFIED Status: Chronic Priority: Low Current Visit: No Qualifiers: Hypothyroidism type: unspecified Qualified Code(s): E03.9 - Hypothyroidism , unspecified Annotation/Comment:: Elevated TSH, will increase [place] dose (8) RBC microcytosis Status: Chronic Priority: Low Current Visit: No Annotation/Comment:: Chronic, stable, per patient (9) Scleroderma SNOMED Code(s): 31788448 Code(s): M34.9 - SYSTEMIC SCLEROSIS, UNSPECIFIED Status: Chronic Priority : Low Current Visit: No (10) Thrombocytopenia SNOMED Code(s): 338154553 Code(s): D69.6 - THROMBOCYTOPENIA, UNSPECIFIED Status: Chronic Priority: Low Current Visit: No Annotation/Comment:: chronic, stable per patient (11) Afib SNOMED Code(s): 43980981 Code(s): I48.91 - UNSPECIFIED ATRIAL FIBRILLATION Status: Acute Priority : Low Current Visit: No Qualifiers: Atrial fibrillation type: unspecified Qualified Code(s): I48.91 - Unspecified atrial fibrillation (12) Hypokalemia SNOMED Code(s): 02873204 Code(s): E87.6 - HYPOKALEMIA Status: Acute Priority: Low Current Visit : Yes Annotation/Comment:: Supplemental K started. - Problem List Review Problem List Initiated/Reviewed/Updated: Yes - My Orders Last 24 Hours: My Active Orders 03/07/18 18:00 Warfarin [Coumadin] 5 mg PO SuTuThSa@1800 03/07/18 20:00 Atenolol [Tenormin] 50 mg PO BEDTIME 03/08/18 08:00 Magnesium Oxide 400 mg PO DAILY Potassium Chloride [Klor-Con M20] 20 meq PO WITHBREAKFAST Sodium Chloride 0.9% [Saline Flush] 10 ml FLUSH Q12H Thyroid [[place] Thyroid] 90 mg PO DAILY 03/08/18 14:24 Discontinue Telemetry Monitoring [Cardiac Monitoring Discontinue] [RC] Click to Edit 03/08/18 18:00 Warfarin [Coumadin] 2.5 mg PO MoWeFr@1800 03/08/18 20:00 Insulin Glarg,Human.Rec.Analog [LantUS] 10 unit SUBCUT Q12HR - Assessment Assessment:: Hyperglycemia, poor control in Type 2 diabetic. Continues to run high blood sugars despite increased dosing of insulin - Plan Plan:: Continue accuchecks/insulin adjustment. Supplemental Mag/K. Thyroid increased to 90mg/daily. Anticipate 1-2 more days inpatient stay while we continue to attempt improved control of patient's blood sugars.
[2018-03-08] MEDS ORDERED: Warfarin 2.5 MG Tab PO SCH (18:00)
[2018-03-08] MEDS: Insulin Glargine,Human Rec. Analog 100 Units/ML 10 ML Vial SUBCUT SCH (21:46)
[2018-03-09] MEDS: Insulin Regular, Human 100 Units/ML 3 ML Vial SUBCUT SCH ×2 (08:28→11:22)
[2018-03-09] MEDS: Insulin Glargine,Human Rec. Analog 100 Units/ML 10 ML Vial SUBCUT SCH (08:31)
[2018-03-09] MEDS: Hydrochlorothiazide 25 MG Tab PO SCH (08:32)
[2018-03-09] MEDS: Magnesium Oxide 400 MG Tab PO SCH (08:33)
[2018-03-09] MEDS: Atenolol 50 MG Tab PO SCH ×2 (08:33→20:10)
[2018-03-09] MEDS: Potassium Chloride 20 MEQ Tab.ER PO SCH ×2 (08:33→17:00)
[2018-03-09] MEDS: Sodium Chloride 0.9% 10 ML Syringe FLUSH SCH ×2 (08:34→20:12)
[2018-03-09] MEDS: Warfarin 5 MG Tab PO SCH (17:00)
[2018-03-09] MEDS ORDERED: Insulin Glargine,Human Rec. Analog 100 Units/ML 10 ML Vial SUBCUT SCH (20:00)
[2018-03-09] MEDS ORDERED: Potassium Chloride 20 MEQ Tab.ER PO ONE (20:00)
--- NOTE | 2018-03-09 23:40 | PCM.PN ---
- General Info Date of Service: 03/09/18 Admission Dx/Problem (Free Text): Hyperglycemia Subjective Update: Feels better overall. No new complaints. Functional Status: Reports: Other (pain left thumb) - Review of Systems General: Reports: No Symptoms HEENT: Reports: No Symptoms Pulmonary: Reports: No Symptoms Cardiovascular: Reports: No Symptoms Gastrointestinal: Reports: No Symptoms Genitourinary: Reports: No Symptoms Musculoskeletal: Reports: Hand Pain (thumb pain) Skin: Reports: Other (decreased elasticity) Neurological: Reports: No Symptoms Psychiatric: Reports: No Symptoms - Patient Data Vitals - Most Recent: Last Vital Signs Temp 97.5 F 03/09/18 20:00 Pulse 60 03/09/18 20:00 Resp 16 03/09/18 20:00 BP 126/59 L 03/09/18 20:10 Pulse Ox 95 03/09/18 20:00 Weight - Most Recent: 163 lb 0.016 oz I&O - Last 24 Hours: Intake & Output 03/09/18 03/09/18 03/10/18 14:59 22:59 06:59 Intake Total 620 860 Balance 620 860 Lab Results Last 24 Hours: Laboratory Results - last 24 hr 03/09/18 03/09/18 03/09/18 Range/Units 07:36 17:04 21:38 POC Glucose 184 H 189 H 245 H (65-110) mg/dl Med Orders - Current: Current Medications Acetaminophen (Tylenol) 650 mg PO Q4H PRN PRN Reason: Pain (Mild 1-3)/fever Atenolol (Tenormin) 50 mg PO BEDTIME [facility] Last Admin: 03/09/18 20:10 Dose: 50 mg Atenolol (Tenormin) 50 mg PO DAILY [facility] Last Admin: 03/09/18 08:33 Dose: 50 mg Bisacodyl (Dulcolax) 5 mg PO DAILY PRN PRN Reason: Constipation Calcium Carbonate/Glycine (Tums) 1,000 mg PO Q4H PRN PRN Reason: GI upset Last Admin: 03/07/18 04:02 Dose: 1,000 mg Hydrochlorothiazide (Hydrochlorothiazide) 25 mg PO DAILY [facility] Last Admin: 03/09/18 08:32 Dose: 25 mg Insulin Glargine (Lantus) 20 unit SUBCUT BEDTIME [facility] Last Admin: 03/09/18 20:11 Dose: 20 units Magnesium Oxide (Magnesium Oxide) 400 mg PO DAILY [facility] Last Admin: 03/09/18 08:33 Dose: 400 mg Non-Formulary Medication (Meperidine Hcl) 50 mg PO Q4H PRN PRN Reason: Other Ondansetron HCl (Zofran Odt) 4 mg PO Q6H PRN PRN Reason: Nausea/Vomiting Potassium Chloride (Klor-Con M20) 20 meq PO TID [facility] Last Admin: 03/09/18 17:00 Dose: 20 meq Sodium Chloride (Saline Flush) 10 ml FLUSH Q12H [facility] Last Admin: 03/09/18 20:12 Dose: Not Given Thyroid ([place] Thyroid) 90 mg PO DAILY [facility] Last Admin: 03/09/18 07:45 Dose: 90 mg Warfarin Sodium (Coumadin) 2.5 mg PO MoWeFr@1800 [facility] Last Admin: 03/08/18 17:20 Dose: 2.5 mg Warfarin Sodium (Coumadin) 5 mg PO SuTuThSa@1800 [facility] Last Admin: 03/09/18 17:00 Dose: 5 mg Discontinued Medications Sodium Chloride (Normal Saline) 1,000 mls @ 100 mls/hr IV .BOLUS ONE Stop: 03/07/18 10:38 Last Admin: 03/07/18 01:05 Dose: 100 mls/hr Insulin Glargine (Lantus) 0 unit SUBCUT 1300 [facility] Last Admin: 03/07/18 13:00 Dose: 6 unit Insulin Glargine (Lantus) 10 unit SUBCUT DAILY@1300 [facility] Last Admin: 03/08/18 13:04 Dose: 10 unit Insulin Glargine (Lantus) 10 unit SUBCUT Q12HR [facility] Last Admin: 03/09/18 08:31 Dose: 10 units Insulin Human Regular (Humulin R) 15 unit SUBCUT ONETIME ONE Stop: 03/07/18 23:23 Insulin Human Regular (Humulin R) 15 unit IV ONETIME STA Stop: 03/06/18 23:23 Last Admin: 03/06/18 23:27 Dose: 15 units Insulin Human Regular (Humulin R) 0 unit SUBCUT TIDAC [facility]; Protocol Last Admin: 03/09/18 11:22 Dose: 6 units Insulin Human Regular (Humulin R) 8 unit SUBCUT ONETIME ONE; Protocol Stop: 03/07/18 00:38 Last Admin: 03/07/18 01:05 Dose: 8 units Magnesium Sulfate/Dextrose (Magnesium 1 Gm In D5w 100 Ml) 1 gm IV ONETIME ONE Stop: 03/07/18 06:01 Magnesium Sulfate/Dextrose (Magnesium 1 Gm In D5w 100 Ml) 1 gm IV ONETIME ONE Stop: 03/07/18 03:37 Last Admin: 03/07/18 03:59 Dose: 1 gm Potassium Chloride (Klor-Con M20) 20 meq PO WITHBREAKFAST [facility] Last Admin: 03/09/18 08:33 Dose: 20 meq Potassium Chloride (Klor-Con M20) 20 meq PO ONETIME ONE Stop: 03/09/18 20:01 Last Admin: 03/09/18 20:10 Dose: 20 meq Thyroid ([place] Thyroid) 15 mg PO DAILY [facility] Last Admin: 03/07/18 08:39 Dose: 15 mg Thyroid ([place] Thyroid) 60 mg PO DAILY [facility] Last Admin: 03/08/18 12:05 Dose: Not Given Warfarin Sodium (Coumadin) 5 mg PO ONETIME ONE Stop: 03/07/18 00:15 Last Admin: 03/07/18 01:04 Dose: 5 mg - Exam General: Alert, Cooperative, No Acute Distress HEENT: Pupils Equal, Pupils Reactive, Mucous Membr. Moist/[place] Neck: Trachea Midline, No JVD Lungs: Clear to Auscultation, Normal Respiratory Effort Cardiovascular: Regular Rate, Regular Rhythm GI/Abdominal Exam: Soft, Non-Tender, No Distention (Female) Exam: Deferred Back Exam: Normal Inspection Extremities: Normal Inspection Skin: Warm, Dry, Intact Neurological: No New Focal Deficit Psy/Mental Status: Alert, Normal Affect, Normal Mood - Problem List & Annotations (1) Hyperglycemia SNOMED Code(s): 36713417 Code(s): R73.9 - HYPERGLYCEMIA, UNSPECIFIED Status: Acute Priority: High Current Visit: Yes Annotation/Comment:: A1C >14 Patient placed on frequent accuchecks as well as sliding scale insulin. Nursing staff will work on diabetic teaching so that patient is able to manage sugars/diet better at home. Blood glucose continues to be significantly elevated, 300-420. Patient remarked that she is eating more carbs here on the ADA diet than she eats at home. Lantus increased to 10u BID, sliding scale continued. (2) Hypokalemia SNOMED Code(s): 03344114 Code(s): E87.6 - HYPOKALEMIA Status: Acute Priority: Low Current Visit : Yes Annotation/Comment:: Supplemental K started. (3) Hypomagnesemia SNOMED Code(s): 963400128 Code(s): E83.42 - HYPOMAGNESEMIA Status: Acute Priority: Medium Current Visit: Yes Annotation/Comment:: Will give supplemental magnesium and recheck level. (4) Diabetes SNOMED Code(s): 34676413 Code(s): E11.9 - TYPE 2 DIABETES MELLITUS WITHOUT COMPLICATIONS Status: Chronic Priority: High Current Visit: Yes Qualifiers: Diabetes mellitus type: type 2 Diabetes mellitus half-way insulin use: without half-way use Diabetes mellitus complication status: without complication Qualified Code(s): E11.9 - Type 2 diabetes mellitus without complications (5) Afib SNOMED Code(s): 67464618 Code(s): I48.91 - UNSPECIFIED ATRIAL FIBRILLATION Status: Acute Priority : Low Current Visit: No Qualifiers: Atrial fibrillation type: unspecified Qualified Code(s): I48.91 - Unspecified atrial fibrillation (6) Chronic anticoagulation SNOMED Code(s): 103767460 Code(s): Z79.01 - DESIGN INTERN (CURRENT) USE OF ANTICOAGULANTS Status: Chronic Priority: Low Current Visit: No Annotation/Comment:: Theraputic INR at 2.3 (7) GERD (gastroesophageal reflux disease) SNOMED Code(s): 987161850 Code(s): K21.9 - GASTRO-ESOPHAGEAL REFLUX DISEASE WITHOUT ESOPHAGITIS Status: Chronic Priority: Low Current Visit: No Qualifiers: Esophagitis presence: esophagitis presence not specified Qualified Code(s) : K21.9 - Gastro-esophageal reflux disease without esophagitis Annotation/Comment:: Currently stable (8) Hypertension SNOMED Code(s): 29306783 Code(s): I10 - ESSENTIAL (PRIMARY) HYPERTENSION Status: Chronic Priority : Low Current Visit: No Qualifiers: Hypertension type: essential hypertension Qualified Code(s): I10 - Essential (primary) hypertension Annotation/Comment:: Will monitor for trends (9) Hypothyroid SNOMED Code(s): 09481092 Code(s): E03.9 - HYPOTHYROIDISM, UNSPECIFIED Status: Chronic Priority: Low Current Visit: No Qualifiers: Hypothyroidism type: unspecified Qualified Code(s): E03.9 - Hypothyroidism , unspecified Annotation/Comment:: Elevated TSH, will increase [place] dose (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 Priority: Low Current Visit: No Annotation/Comment:: Chronic, stable, per patient (11) Scleroderma SNOMED Code(s): 35713973 Code(s): M34.9 - SYSTEMIC SCLEROSIS, UNSPECIFIED Status: Chronic Priority : Low Current Visit: No (12) Thrombocytopenia SNOMED Code(s): 596079493 Code(s): D69.6 - THROMBOCYTOPENIA, UNSPECIFIED Status: Chronic Priority: Low Current Visit: No Annotation/Comment:: chronic, stable per patient - Problem List Review Problem List Initiated/Reviewed/Updated: Yes - My Orders Last 24 Hours: My Active Orders 03/09/18 18:00 Potassium Chloride [Klor-Con M20] 20 meq PO TID 03/09/18 20:00 Insulin Glarg,Human.Rec.Analog [LantUS] 20 unit SUBCUT BEDTIME 03/10/18 05:11 CBC WITH AUTO DIFF [HEME] DAILY CMP [COMPREHENSIVE METABOLIC PN,CMP] [CHEM] DAILY INR,PT,PROTHROMBIN TIME [COAG] DAILY MAGNESIUM [CHEM] Routine MICROALBUMIN,URINE RANDOM [URCHEM] Routine 03/11/18 05:11 CBC WITH AUTO DIFF [HEME] DAILY CMP [COMPREHENSIVE METABOLIC PN,CMP] [CHEM] DAILY INR,PT,PROTHROMBIN TIME [COAG] DAILY - Assessment Assessment:: Hyperglycemia, poor control in Type 2 diabetic. Continues to run high blood sugars despite increased dosing of insulin - Plan Plan:: Continue accuchecks/insulin adjustment. Supplemental Mag/K. Thyroid increased to 90mg/daily. Anticipate 1-2 more days inpatient stay while we continue to attempt improved control of patient's blood sugars. 03/09/18 Sheets Nasreen FLOYD Feeling better. Blood sugars improving. Still hypokalemia, and replacing it. Replacing magnesium. Recheck labs in AM. Left thumb pain. Takes meperidine at home. Not available tonight. She does have multiple drug allergies.
[2018-03-09] MEDS ORDERED: Acetaminophen/HYDROcodone 325-5 MG Tab PO ONE (23:41)
[2018-03-09] MEDS ORDERED: Acetaminophen/HYDROcodone 325-5 MG Tab PO PRN (23:43)
[2018-03-10 07:14] LABS: CHLORIDE,CL 106 mmol/L (98-107); SODIUM,NA 143 mmol/L (136-145)
[2018-03-10] MEDS: Potassium Chloride 20 MEQ Tab.ER PO SCH ×2 (07:53→11:23)
[2018-03-10] MEDS: Magnesium Oxide 400 MG Tab PO SCH (07:55)
[2018-03-10] MEDS: Hydrochlorothiazide 25 MG Tab PO SCH (07:55)
[2018-03-10] MEDS: Atenolol 50 MG Tab PO SCH (07:56)
[2018-03-10] MEDS: Sodium Chloride 0.9% 10 ML Syringe FLUSH SCH (08:01)
[2018-03-10 11:22] VITALS: BP 132/98
--- NOTE | 2018-03-10 15:28 | PCM.PN ---
- General Info Date of Service: 03/10/18 Admission Dx/Problem (Free Text): Hyperglycemia Subjective Update: Feels better overall. No new complaints. Functional Status: Reports: Pain Controlled, Tolerating Diet, Ambulating - Review of Systems General: Reports: No Symptoms HEENT: Reports: No Symptoms Pulmonary: Reports: No Symptoms Cardiovascular: Reports: No Symptoms Gastrointestinal: Reports: No Symptoms Genitourinary: Reports: No Symptoms Musculoskeletal: Reports: No Symptoms Skin: Reports: No Symptoms Neurological: Reports: No Symptoms Psychiatric: Reports: No Symptoms - Patient Data Vitals - Most Recent: Last Vital Signs Temp 98.8 F 03/10/18 11:20 Pulse 61 03/10/18 11:20 Resp 18 03/10/18 11:20 BP 132/98 H 03/10/18 11:20 Pulse Ox 98 03/10/18 11:20 Weight - Most Recent: 163 lb 0.016 oz I&O - Last 24 Hours: Intake & Output 03/10/18 03/10/18 03/10/18 06:59 14:59 22:59 Intake Total 480 Balance 480 Lab Results Last 24 Hours: Laboratory Results - last 24 hr 03/09/18 03/09/18 03/10/18 Range/Units 17:04 21:38 06:45 WBC 5.2 (4.0-10.2) K/uL RBC 5.12 H (3.77-5.09) M/uL Hgb 14.5 (11.7-15.5) g/dL Hct 42.5 (34.0-46.0) % MCV 83.0 L (84.0-98.0) fL MCH 28.3 (28.2-33.3) pg MCHC 34.1 (31.7-36.0) g/dL RDW 14.0 (11.2-14.1) % Plt Count 92 L (150-350) K/uL Neut % (Auto) 47.7 (45.0-80.0) % Lymph % (Auto) 39.5 (10.0-50.0) % [place] % (Auto) 9.9 (2.0-14.0) % Eos % (Auto) 2.7 (0.0-5.0) % Baso % (Auto) 0.2 (0.0-2.0) % Neut # (Auto) 2.46 (1.40-7.00) K/uL Lymph # (Auto) 2.04 (0.50-3.50) K/uL [place] # (Auto) 0.51 (0.00-1.00) K/uL Eos # (Auto) 0.14 (0.00-0.50) K/uL Baso # (Auto) 0.01 (0.00-0.20) K/uL PT (9.8-11.7) SEC INR Sodium (136-145) mmol/L Potassium (3.5-5.1) mmol/L Chloride (98-107) mmol/L Carbon Dioxide (21.0-32.0) mmol/L BUN (7-18) mg/dL Creatinine (0.51-1.17) mg/dL Est Cr Clr Drug Dosing mL/min Estimated GFR (MDRD) mL/min Glucose (74-106) mg/dL POC Glucose 189 H 245 H (65-110) mg/dl Calcium (8.5-10.1) mg/dL Magnesium (1.8-2.4) mg/dL Total Bilirubin (0.2-1.0) mg/dL AST (15-37) U/L ALT (12-78) U/L Alkaline Phosphatase (46-116) IU/L Total Protein (6.4-8.2) g/dL Albumin (3.4-5.0) g/dL 03/10/18 03/10/18 03/10/18 Range/Units 06:45 06:45 07:34 WBC (4.0-10.2) K/uL RBC (3.77-5.09) M/uL Hgb (11.7-15.5) g/dL Hct (34.0-46.0) % MCV (84.0-98.0) fL MCH (28.2-33.3) pg MCHC (31.7-36.0) g/dL RDW (11.2-14.1) % Plt Count (150-350) K/uL Neut % (Auto) (45.0-80.0) % Lymph % (Auto) (10.0-50.0) % [place] % (Auto) (2.0-14.0) % Eos % (Auto) (0.0-5.0) % Baso % (Auto) (0.0-2.0) % Neut # (Auto) (1.40-7.00) K/uL Lymph # (Auto) (0.50-3.50) K/uL [place] # (Auto) (0.00-1.00) K/uL Eos # (Auto) (0.00-0.50) K/uL Baso # (Auto) (0.00-0.20) K/uL PT 31.8 H (9.8-11.7) SEC INR 2.9 Sodium 143 (136-145) mmol/L Potassium 3.9 (3.5-5.1) mmol/L Chloride 106 (98-107) mmol/L Carbon Dioxide 29.1 (21.0-32.0) mmol/L BUN 8 (7-18) mg/dL Creatinine 0.66 (0.51-1.17) mg/dL Est Cr Clr Drug Dosing 53.71 mL/min Estimated GFR (MDRD) > 60 mL/min Glucose 156 H (74-106) mg/dL POC Glucose 120 H (65-110) mg/dl Calcium 8.7 (8.5-10.1) mg/dL Magnesium 1.7 L (1.8-2.4) mg/dL Total Bilirubin 0.5 (0.2-1.0) mg/dL AST 51 H (15-37) U/L ALT 39 (12-78) U/L Alkaline Phosphatase 83 (46-116) IU/L Total Protein 6.7 (6.4-8.2) g/dL Albumin 3.0 L (3.4-5.0) g/dL 03/10/18 Range/Units 11:19 WBC (4.0-10.2) K/uL RBC (3.77-5.09) M/uL Hgb (11.7-15.5) g/dL Hct (34.0-46.0) % MCV (84.0-98.0) fL MCH (28.2-33.3) pg MCHC (31.7-36.0) g/dL RDW (11.2-14.1) % Plt Count (150-350) K/uL Neut % (Auto) (45.0-80.0) % Lymph % (Auto) (10.0-50.0) % [place] % (Auto) (2.0-14.0) % Eos % (Auto) (0.0-5.0) % Baso % (Auto) (0.0-2.0) % Neut # (Auto) (1.40-7.00) K/uL Lymph # (Auto) (0.50-3.50) K/uL [place] # (Auto) (0.00-1.00) K/uL Eos # (Auto) (0.00-0.50) K/uL Baso # (Auto) (0.00-0.20) K/uL PT (9.8-11.7) SEC INR Sodium (136-145) mmol/L Potassium (3.5-5.1) mmol/L Chloride (98-107) mmol/L Carbon Dioxide (21.0-32.0) mmol/L BUN (7-18) mg/dL Creatinine (0.51-1.17) mg/dL Est Cr Clr Drug Dosing mL/min Estimated GFR (MDRD) mL/min Glucose (74-106) mg/dL POC Glucose 169 H (65-110) mg/dl Calcium (8.5-10.1) mg/dL Magnesium (1.8-2.4) mg/dL Total Bilirubin (0.2-1.0) mg/dL AST (15-37) U/L ALT (12-78) U/L Alkaline Phosphatase (46-116) IU/L Total Protein (6.4-8.2) g/dL Albumin (3.4-5.0) g/dL Med Orders - Current: Current Medications Discontinued Medications Acetaminophen (Tylenol) 650 mg PO Q4H PRN PRN Reason: Pain (Mild 1-3)/fever Hydrocodone Bitart/Acetaminophen ([place] 325-5 Mg) 1 tab PO ONETIME ONE Stop: 03/10/18 00:33 Last Admin: 03/10/18 01:10 Dose: Not Given Hydrocodone Bitart/Acetaminophen ([place] 325-5 Mg) 1 tab PO Q6H PRN PRN Reason: Pain Atenolol (Tenormin) 50 mg PO BEDTIME EARLINE Last Admin: 03/09/18 20:10 Dose: 50 mg Atenolol (Tenormin) 50 mg PO DAILY [facility] Last Admin: 03/10/18 07:56 Dose: 50 mg Bisacodyl (Dulcolax) 5 mg PO DAILY PRN PRN Reason: Constipation Calcium Carbonate/Glycine (Tums) 1,000 mg PO Q4H PRN PRN Reason: GI upset Last Admin: 03/07/18 04:02 Dose: 1,000 mg Hydrochlorothiazide (Hydrochlorothiazide) 25 mg PO DAILY [facility] Last Admin: 03/10/18 07:55 Dose: 25 mg Sodium Chloride (Normal Saline) 1,000 mls @ 100 mls/hr IV .BOLUS ONE Stop: 03/07/18 10:38 Last Admin: 03/07/18 01:05 Dose: 100 mls/hr Insulin Glargine (Lantus) 0 unit SUBCUT 1300 [facility] Last Admin: 03/07/18 13:00 Dose: 6 unit Insulin Glargine (Lantus) 10 unit SUBCUT DAILY@1300 [facility] Last Admin: 03/08/18 13:04 Dose: 10 unit Insulin Glargine (Lantus) 10 unit SUBCUT Q12HR [facility] Last Admin: 03/09/18 08:31 Dose: 10 units Insulin Glargine (Lantus) 20 unit SUBCUT BEDTIME [facility] Last Admin: 03/09/18 20:11 Dose: 20 units Insulin Human Regular (Humulin R) 15 unit SUBCUT ONETIME ONE Stop: 03/07/18 23:23 Insulin Human Regular (Humulin R) 15 unit IV ONETIME STA Stop: 03/06/18 23:23 Last Admin: 03/06/18 23:27 Dose: 15 units Insulin Human Regular (Humulin R) 0 unit SUBCUT TIDAC [facility]; Protocol Last Admin: 03/09/18 11:22 Dose: 6 units Insulin Human Regular (Humulin R) 8 unit SUBCUT ONETIME ONE; Protocol Stop: 03/07/18 00:38 Last Admin: 03/07/18 01:05 Dose: 8 units Magnesium Oxide (Magnesium Oxide) 400 mg PO DAILY [facility] Last Admin: 03/10/18 07:55 Dose: 400 mg Magnesium Sulfate/Dextrose (Magnesium 1 Gm In D5w 100 Ml) 1 gm IV ONETIME ONE Stop: 03/07/18 06:01 Magnesium Sulfate/Dextrose (Magnesium 1 Gm In D5w 100 Ml) 1 gm IV ONETIME ONE Stop: 03/07/18 03:37 Last Admin: 03/07/18 03:59 Dose: 1 gm Non-Formulary Medication (Meperidine Hcl) 50 mg PO Q4H PRN PRN Reason: Other Ondansetron HCl (Zofran Odt) 4 mg PO Q6H PRN PRN Reason: Nausea/Vomiting Potassium Chloride (Klor-Con M20) 20 meq PO WITHBREAKFAST [facility] Last Admin: 03/09/18 08:33 Dose: 20 meq Potassium Chloride (Klor-Con M20) 20 meq PO ONETIME ONE Stop: 03/09/18 20:01 Last Admin: 03/09/18 20:10 Dose: 20 meq Potassium Chloride (Klor-Con M20) 20 meq PO TID [facility] Last Admin: 03/10/18 11:23 Dose: 20 meq Sodium Chloride (Saline Flush) 10 ml FLUSH Q12H [facility] Last Admin: 03/10/18 08:01 Dose: Not Given Thyroid ([place] Thyroid) 15 mg PO DAILY [facility] Last Admin: 03/07/18 08:39 Dose: 15 mg Thyroid ([place] Thyroid) 60 mg PO DAILY [facility] Last Admin: 03/08/18 12:05 Dose: Not Given Thyroid ([place] Thyroid) 90 mg PO DAILY [facility] Last Admin: 03/10/18 07:56 Dose: 90 mg Warfarin Sodium (Coumadin) 5 mg PO ONETIME ONE Stop: 03/07/18 00:15 Last Admin: 03/07/18 01:04 Dose: 5 mg Warfarin Sodium (Coumadin) 2.5 mg PO MoWeFr@1800 [facility] Last Admin: 03/08/18 17:20 Dose: 2.5 mg Warfarin Sodium (Coumadin) 5 mg PO SuTuThSa@1800 [facility] Last Admin: 03/09/18 17:00 Dose: 5 mg - Exam General: Alert, Cooperative, No Acute Distress HEENT: Pupils Equal, Pupils Reactive, Mucous Membr. Moist/[place] Neck: Trachea Midline, No JVD Lungs: Clear to Auscultation, Normal Respiratory Effort Cardiovascular: Irregular Rhythm GI/Abdominal Exam: Soft, Non-Tender, No Distention (Female) Exam: Deferred Back Exam: Normal Inspection Extremities: Normal Inspection, No Pedal Edema Skin: Warm, Dry, Intact, Other (stiffness) Neurological: No New Focal Deficit Psy/Mental Status: Alert, Normal Affect, Normal Mood - Problem List & Annotations (1) Hyperglycemia SNOMED Code(s): 86993865 Code(s): R73.9 - HYPERGLYCEMIA, UNSPECIFIED Status: Acute Priority: High Annotation/Comment:: A1C >14 Patient placed on frequent accuchecks as well as sliding scale insulin. Nursing staff will work on diabetic teaching so that patient is able to manage sugars/diet better at home. Blood glucose continues to be significantly elevated, 300-420. Patient remarked that she is eating more carbs here on the ADA diet than she eats at home. Lantus increased to 10u BID, sliding scale continued. (2) Hypokalemia SNOMED Code(s): 50779743 Code(s): E87.6 - HYPOKALEMIA Status: Acute Priority: Low Annotation/ Comment:: Supplemental K started. (3) Hypomagnesemia SNOMED Code(s): 775364254 Code(s): E83.42 - HYPOMAGNESEMIA Status: Acute Priority: Medium Annotation/Comment:: Will give supplemental magnesium and recheck level. (4) Diabetes SNOMED Code(s): 34891249 Code(s): E11.9 - TYPE 2 DIABETES MELLITUS WITHOUT COMPLICATIONS Status: Chronic Priority: High Qualifiers: Diabetes mellitus type: type 2 Diabetes mellitus retirement insulin use: without retirement use Diabetes mellitus complication status: without complication Qualified Code(s): E11.9 - Type 2 diabetes mellitus without complications (5) Afib SNOMED Code(s): 57971924 Code(s): I48.91 - UNSPECIFIED ATRIAL FIBRILLATION Status: Acute Priority : Low Qualifiers: Atrial fibrillation type: unspecified Qualified Code(s): I48.91 - Unspecified atrial fibrillation (6) Chronic anticoagulation SNOMED Code(s): 357900469 Code(s): Z79.01 - [facility] (CURRENT) USE OF ANTICOAGULANTS Status: Chronic Priority: Low Annotation/Comment:: Theraputic INR at 2.3 (7) GERD (gastroesophageal reflux disease) SNOMED Code(s): 848286550 Code(s): K21.9 - GASTRO-ESOPHAGEAL REFLUX DISEASE WITHOUT ESOPHAGITIS Status: Chronic Priority: Low Qualifiers: Esophagitis presence: esophagitis presence not specified Qualified Code(s) : K21.9 - Gastro-esophageal reflux disease without esophagitis Annotation/Comment:: Currently stable (8) Hypertension SNOMED Code(s): 65016078 Code(s): I10 - ESSENTIAL (PRIMARY) HYPERTENSION Status: Chronic Priority : Low Qualifiers: Hypertension type: essential hypertension Qualified Code(s): I10 - Essential (primary) hypertension Annotation/Comment:: Will monitor for trends (9) Hypothyroid SNOMED Code(s): 16600952 Code(s): E03.9 - HYPOTHYROIDISM, UNSPECIFIED Status: Chronic Priority: Low Qualifiers: Hypothyroidism type: unspecified Qualified Code(s): E03.9 - Hypothyroidism , unspecified Annotation/Comment:: Elevated TSH, will increase [place] dose (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 Priority: Low Annotation/Comment:: Chronic, stable, per patient (11) Scleroderma SNOMED Code(s): 42601476 Code(s): M34.9 - SYSTEMIC SCLEROSIS, UNSPECIFIED Status: Chronic Priority : Low (12) Thrombocytopenia SNOMED Code(s): 297287570 Code(s): D69.6 - THROMBOCYTOPENIA, UNSPECIFIED Status: Chronic Priority: Low Annotation/Comment:: chronic, stable per patient - Problem List Review Problem List Initiated/Reviewed/Updated: Yes - My Orders Last 24 Hours: My Active Orders 03/10/18 05:11 MICROALBUMIN,URINE RANDOM [URCHEM] Routine 03/10/18 12:59 Discontinue Saline Lock [Peripheral IV Discontinue] [OM.PC] Routine 03/10/18 13:08 Ready for Discharge [RC] PER UNIT ROUTINE - Assessment Assessment:: Hyperglycemia, poor control in Type 2 diabetic. Continues to run high blood sugars despite increased dosing of insulin - Plan Plan:: Continue accuchecks/insulin adjustment. Supplemental Mag/K. Thyroid increased to 90mg/daily. Anticipate 1-2 more days inpatient stay while we continue to attempt improved control of patient's blood sugars. 03/09/18 Emery Downey MD Feeling better. Blood sugars improving. Still hypokalemia, and replacing it. Replacing magnesium. Recheck labs in AM. Left thumb pain. Takes meperidine at home. Not available tonight. She does have multiple drug allergies. 03/10/18 Emery Downey MD Feels great. Wants to go home today. Blood sugars improved. Potassium improved. Left thumb feels better.
--- NOTE | 2018-03-10 15:31 | PCM.DCSUM1 ---
Discharge Summary - Hospital Course Diagnosis: Stroke: No - Discharge Data Discharge Date: 03/10/18 Discharge Disposition: Home, Self-Care 01 Condition: Good - Discharge Diagnosis/Problem(s) (1) Hyperglycemia SNOMED Code(s): 51733971 ICD Code: R73.9 - HYPERGLYCEMIA, UNSPECIFIED Status: Acute Priority: High Problem Details: A1C >14 Patient placed on frequent accuchecks as well as sliding scale insulin. Nursing staff will work on diabetic teaching so that patient is able to manage sugars/diet better at home. Blood glucose continues to be significantly elevated, 300-420. Patient remarked that she is eating more carbs here on the ADA diet than she eats at home. Lantus increased to 10u BID, sliding scale continued. (2) Hypokalemia SNOMED Code(s): 51220402 ICD Code: E87.6 - HYPOKALEMIA Status: Acute Priority: Low Problem Details: Supplemental K started. (3) Hypomagnesemia SNOMED Code(s): 222887563 ICD Code: E83.42 - HYPOMAGNESEMIA Status: Acute Priority: Medium Problem Details: Will give supplemental magnesium and recheck level. (4) Diabetes SNOMED Code(s): 53635841 ICD Code: E11.9 - TYPE 2 DIABETES MELLITUS WITHOUT COMPLICATIONS Status: Chronic Priority: High Qualifiers: Diabetes mellitus type: type 2 Diabetes mellitus mcfp insulin use: without termite exterminator helper use Diabetes mellitus complication status: without complication Qualified Code(s): E11.9 - Type 2 diabetes mellitus without complications (5) Afib SNOMED Code(s): 83821330 ICD Code: I48.91 - UNSPECIFIED ATRIAL FIBRILLATION Status: Acute Priority : Low Qualifiers: Atrial fibrillation type: unspecified Qualified Code(s): I48.91 - Unspecified atrial fibrillation (6) Chronic anticoagulation SNOMED Code(s): 580469299 ICD Code: Z79.01 - [facility] (CURRENT) USE OF ANTICOAGULANTS Status: Chronic Priority: Low Problem Details: Theraputic INR at 2.3 (7) GERD (gastroesophageal reflux disease) SNOMED Code(s): 013265398 ICD Code: K21.9 - GASTRO-ESOPHAGEAL REFLUX DISEASE WITHOUT ESOPHAGITIS Status: Chronic Priority: Low Problem Details: Currently stable Qualifiers: Esophagitis presence: esophagitis presence not specified Qualified Code(s) : K21.9 - Gastro-esophageal reflux disease without esophagitis (8) Hypertension SNOMED Code(s): 38919624 ICD Code: I10 - ESSENTIAL (PRIMARY) HYPERTENSION Status: Chronic Priority : Low Problem Details: Will monitor for trends Qualifiers: Hypertension type: essential hypertension Qualified Code(s): I10 - Essential (primary) hypertension (9) Hypothyroid SNOMED Code(s): 54627575 ICD Code: E03.9 - HYPOTHYROIDISM, UNSPECIFIED Status: Chronic Priority: Low Problem Details: Elevated TSH, will increase [place] dose Qualifiers: Hypothyroidism type: unspecified Qualified Code(s): E03.9 - Hypothyroidism , unspecified (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 Priority: Low Problem Details: Chronic, stable, per patient (11) Scleroderma SNOMED Code(s): 94594482 ICD Code: M34.9 - SYSTEMIC SCLEROSIS, UNSPECIFIED Status: Chronic Priority: Low (12) Thrombocytopenia SNOMED Code(s): 472139967 ICD Code: D69.6 - THROMBOCYTOPENIA, UNSPECIFIED Status: Chronic Priority : Low Problem Details: chronic, stable per patient - Patient Instructions Diet: Diabetic Diet Activity: As Tolerated Driving: May Drive Today Showering/Bathing: May Shower - Discharge Plan *PRESCRIPTION DRUG MONITORING PROGRAM REVIEWED*: Not Applicable *COPY OF PRESCRIPTION DRUG MONITORING REPORT IN PATIENT YOUSIF: Not Applicable Prescriptions/Med Rec: Insulin Detemir [Levemir] 20 unit SUBCUT BEDTIME #1 pen Potassium Chloride 20 meq PO DAILY #90 tablet.er Home Medications: Home Meds Atenolol 50 mg PO BEDTIME 09/20/15 [History] Atenolol 50 mg PO DAILY 09/20/15 [History] Cholecalciferol (Vitamin D3) [Vitamin D3] 2,000 unit PO DAILY 09/20/15 [History] Meperidine HCl [Demerol] 50 mg PO Q4H PRN 09/20/15 [History] Thyroid,Pork [[place] Thyroid] 15 mg PO DAILY 09/20/15 [History] Thyroid,Pork [[place] Thyroid] 60 mg PO DAILY 09/20/15 [History] Vitamin A 10,000 units PO DAILY 09/20/15 [History] Hydrochlorothiazide [Microzide] 25 mg PO DAILY 03/06/18 [History] Warfarin [Coumadin] 2.5 mg PO ASDIRECTED 03/06/18 [History] Warfarin [Coumadin] 5 mg PO ASDIRECTED 03/06/18 [History] Insulin Detemir [Levemir] 20 unit SUBCUT BEDTIME #1 pen 03/10/18 [Rx] Magnesium Oxide 400 mg PO DAILY tablet 03/10/18 [Rx] Potassium Chloride 20 meq PO DAILY #90 tablet.er 03/10/18 [Rx] Patient Handouts: Type 2 Diabetes Mellitus, Diagnosis, Adult, Insulin Treatment for Diabetes, Magnesium Sulfate injection, Hyperglycemia, [id number] , Diabetes Mellitus and Nutrition Forms: ED Department Discharge Referrals: Lorena Rogers MD [Primary Care Provider] - - Discharge Summary/Plan Comment DC Time >30 min.: No Discharge Summary/Plan Comment: Follow up at [facility] with Lynnette MENDIOLA in 1-2 weeks. Check blood sugars daily and as needed. Dietary education discussed with her and her . - Patient Data Vitals - Most Recent: Last Vital Signs Temp 98.8 F 03/10/18 11:20 Pulse 61 03/10/18 11:20 Resp 18 03/10/18 11:20 BP 132/98 H 03/10/18 11:20 Pulse Ox 98 03/10/18 11:20 Weight - Most Recent: 163 lb 0.016 oz I&O - Last 24 hours: Intake & Output 03/10/18 03/10/18 03/10/18 06:59 14:59 22:59 Intake Total 480 Balance 480 Lab Results - Last 24 hrs: Laboratory Results - last 24 hr 03/09/18 03/09/18 03/10/18 Range/Units 17:04 21:38 06:45 WBC 5.2 (4.0-10.2) K/uL RBC 5.12 H (3.77-5.09) M/uL Hgb 14.5 (11.7-15.5) g/dL Hct 42.5 (34.0-46.0) % MCV 83.0 L (84.0-98.0) fL MCH 28.3 (28.2-33.3) pg MCHC 34.1 (31.7-36.0) g/dL RDW 14.0 (11.2-14.1) % Plt Count 92 L (150-350) K/uL Neut % (Auto) 47.7 (45.0-80.0) % Lymph % (Auto) 39.5 (10.0-50.0) % [place] % (Auto) 9.9 (2.0-14.0) % Eos % (Auto) 2.7 (0.0-5.0) % Baso % (Auto) 0.2 (0.0-2.0) % Neut # (Auto) 2.46 (1.40-7.00) K/uL Lymph # (Auto) 2.04 (0.50-3.50) K/uL [place] # (Auto) 0.51 (0.00-1.00) K/uL Eos # (Auto) 0.14 (0.00-0.50) K/uL Baso # (Auto) 0.01 (0.00-0.20) K/uL PT (9.8-11.7) SEC INR Sodium (136-145) mmol/L Potassium (3.5-5.1) mmol/L Chloride (98-107) mmol/L Carbon Dioxide (21.0-32.0) mmol/L BUN (7-18) mg/dL Creatinine (0.51-1.17) mg/dL Est Cr Clr Drug Dosing mL/min Estimated GFR (MDRD) mL/min Glucose (74-106) mg/dL POC Glucose 189 H 245 H (65-110) mg/dl Calcium (8.5-10.1) mg/dL Magnesium (1.8-2.4) mg/dL Total Bilirubin (0.2-1.0) mg/dL AST (15-37) U/L ALT (12-78) U/L Alkaline Phosphatase (46-116) IU/L Total Protein (6.4-8.2) g/dL Albumin (3.4-5.0) g/dL 03/10/18 03/10/18 03/10/18 Range/Units 06:45 06:45 07:34 WBC (4.0-10.2) K/uL RBC (3.77-5.09) M/uL Hgb (11.7-15.5) g/dL Hct (34.0-46.0) % MCV (84.0-98.0) fL MCH (28.2-33.3) pg MCHC (31.7-36.0) g/dL RDW (11.2-14.1) % Plt Count (150-350) K/uL Neut % (Auto) (45.0-80.0) % Lymph % (Auto) (10.0-50.0) % [place] % (Auto) (2.0-14.0) % Eos % (Auto) (0.0-5.0) % Baso % (Auto) (0.0-2.0) % Neut # (Auto) (1.40-7.00) K/uL Lymph # (Auto) (0.50-3.50) K/uL [place] # (Auto) (0.00-1.00) K/uL Eos # (Auto) (0.00-0.50) K/uL Baso # (Auto) (0.00-0.20) K/uL PT 31.8 H (9.8-11.7) SEC INR 2.9 Sodium 143 (136-145) mmol/L Potassium 3.9 (3.5-5.1) mmol/L Chloride 106 (98-107) mmol/L Carbon Dioxide 29.1 (21.0-32.0) mmol/L BUN 8 (7-18) mg/dL Creatinine 0.66 (0.51-1.17) mg/dL Est Cr Clr Drug Dosing 53.71 mL/min Estimated GFR (MDRD) > 60 mL/min Glucose 156 H (74-106) mg/dL POC Glucose 120 H (65-110) mg/dl Calcium 8.7 (8.5-10.1) mg/dL Magnesium 1.7 L (1.8-2.4) mg/dL Total Bilirubin 0.5 (0.2-1.0) mg/dL AST 51 H (15-37) U/L ALT 39 (12-78) U/L Alkaline Phosphatase 83 (46-116) IU/L Total Protein 6.7 (6.4-8.2) g/dL Albumin 3.0 L (3.4-5.0) g/dL 03/10/18 Range/Units 11:19 WBC (4.0-10.2) K/uL RBC (3.77-5.09) M/uL Hgb (11.7-15.5) g/dL Hct (34.0-46.0) % MCV (84.0-98.0) fL MCH (28.2-33.3) pg MCHC (31.7-36.0) g/dL RDW (11.2-14.1) % Plt Count (150-350) K/uL Neut % (Auto) (45.0-80.0) % Lymph % (Auto) (10.0-50.0) % [place] % (Auto) (2.0-14.0) % Eos % (Auto) (0.0-5.0) % Baso % (Auto) (0.0-2.0) % Neut # (Auto) (1.40-7.00) K/uL Lymph # (Auto) (0.50-3.50) K/uL [place] # (Auto) (0.00-1.00) K/uL Eos # (Auto) (0.00-0.50) K/uL Baso # (Auto) (0.00-0.20) K/uL PT (9.8-11.7) SEC INR Sodium (136-145) mmol/L Potassium (3.5-5.1) mmol/L Chloride (98-107) mmol/L Carbon Dioxide (21.0-32.0) mmol/L BUN (7-18) mg/dL Creatinine (0.51-1.17) mg/dL Est Cr Clr Drug Dosing mL/min Estimated GFR (MDRD) mL/min Glucose (74-106) mg/dL POC Glucose 169 H (65-110) mg/dl Calcium (8.5-10.1) mg/dL Magnesium (1.8-2.4) mg/dL Total Bilirubin (0.2-1.0) mg/dL AST (15-37) U/L ALT (12-78) U/L Alkaline Phosphatase (46-116) IU/L Total Protein (6.4-8.2) g/dL Albumin (3.4-5.0) g/dL Med Orders - Current: Current Medications Discontinued Medications Acetaminophen (Tylenol) 650 mg PO Q4H PRN PRN Reason: Pain (Mild 1-3)/fever Hydrocodone Bitart/Acetaminophen ([place] 325-5 Mg) 1 tab PO ONETIME ONE Stop: 03/10/18 00:33 Last Admin: 03/10/18 01:10 Dose: Not Given Hydrocodone Bitart/Acetaminophen ([place] 325-5 Mg) 1 tab PO Q6H PRN PRN Reason: Pain Atenolol (Tenormin) 50 mg PO BEDTIME [facility] Last Admin: 03/09/18 20:10 Dose: 50 mg Atenolol (Tenormin) 50 mg PO DAILY [facility] Last Admin: 03/10/18 07:56 Dose: 50 mg Bisacodyl (Dulcolax) 5 mg PO DAILY PRN PRN Reason: Constipation Calcium Carbonate/Glycine (Tums) 1,000 mg PO Q4H PRN PRN Reason: GI upset Last Admin: 03/07/18 04:02 Dose: 1,000 mg Hydrochlorothiazide (Hydrochlorothiazide) 25 mg PO DAILY [facility] Last Admin: 03/10/18 07:55 Dose: 25 mg Sodium Chloride (Normal Saline) 1,000 mls @ 100 mls/hr IV .BOLUS ONE Stop: 03/07/18 10:38 Last Admin: 03/07/18 01:05 Dose: 100 mls/hr Insulin Glargine (Lantus) 0 unit SUBCUT 1300 [facility] Last Admin: 03/07/18 13:00 Dose: 6 unit Insulin Glargine (Lantus) 10 unit SUBCUT DAILY@1300 [facility] Last Admin: 03/08/18 13:04 Dose: 10 unit Insulin Glargine (Lantus) 10 unit SUBCUT Q12HR [facility] Last Admin: 03/09/18 08:31 Dose: 10 units Insulin Glargine (Lantus) 20 unit SUBCUT BEDTIME [facility] Last Admin: 03/09/18 20:11 Dose: 20 units Insulin Human Regular (Humulin R) 15 unit SUBCUT ONETIME ONE Stop: 03/07/18 23:23 Insulin Human Regular (Humulin R) 15 unit IV ONETIME STA Stop: 03/06/18 23:23 Last Admin: 03/06/18 23:27 Dose: 15 units Insulin Human Regular (Humulin R) 0 unit SUBCUT TIDAC [facility]; Protocol Last Admin: 03/09/18 11:22 Dose: 6 units Insulin Human Regular (Humulin R) 8 unit SUBCUT ONETIME ONE; Protocol Stop: 03/07/18 00:38 Last Admin: 03/07/18 01:05 Dose: 8 units Magnesium Oxide (Magnesium Oxide) 400 mg PO DAILY [facility] Last Admin: 03/10/18 07:55 Dose: 400 mg Magnesium Sulfate/Dextrose (Magnesium 1 Gm In D5w 100 Ml) 1 gm IV ONETIME ONE Stop: 03/07/18 06:01 Magnesium Sulfate/Dextrose (Magnesium 1 Gm In D5w 100 Ml) 1 gm IV ONETIME ONE Stop: 03/07/18 03:37 Last Admin: 03/07/18 03:59 Dose: 1 gm Non-Formulary Medication (Meperidine Hcl) 50 mg PO Q4H PRN PRN Reason: Other Ondansetron HCl (Zofran Odt) 4 mg PO Q6H PRN PRN Reason: Nausea/Vomiting Potassium Chloride (Klor-Con M20) 20 meq PO WITHBREAKFAST [facility] Last Admin: 03/09/18 08:33 Dose: 20 meq Potassium Chloride (Klor-Con M20) 20 meq PO ONETIME ONE Stop: 03/09/18 20:01 Last Admin: 03/09/18 20:10 Dose: 20 meq Potassium Chloride (Klor-Con M20) 20 meq PO TID [facility] Last Admin: 03/10/18 11:23 Dose: 20 meq Sodium Chloride (Saline Flush) 10 ml FLUSH Q12H [facility] Last Admin: 03/10/18 08:01 Dose: Not Given Thyroid ([place] Thyroid) 15 mg PO DAILY [facility] Last Admin: 03/07/18 08:39 Dose: 15 mg Thyroid ([place] Thyroid) 60 mg PO DAILY [facility] Last Admin: 03/08/18 12:05 Dose: Not Given Thyroid ([place] Thyroid) 90 mg PO DAILY [facility] Last Admin: 03/10/18 07:56 Dose: 90 mg Warfarin Sodium (Coumadin) 5 mg PO ONETIME ONE Stop: 03/07/18 00:15 Last Admin: 03/07/18 01:04 Dose: 5 mg Warfarin Sodium (Coumadin) 2.5 mg PO [email or web address] [facility] Last Admin: 03/08/18 17:20 Dose: 2.5 mg Warfarin Sodium (Coumadin) 5 mg PO [email or web address] [facility] Last Admin: 03/09/18 17:00 Dose: 5 mg
== END 2018-03-10 13:45 | disposition home or self-care (01) | DRG 639 ==
LOC: LL.ED 21:56 → UNDOADMIN 23:32 → LL.MS 23:32
PROVIDERS: ADMIT Emergency Medicine; ATTEND Family Medicine
DX: E11.65 Type 2 diabetes mellitus with hyperglycemia (principal); E87.6 Hypokalemia; E83.42 Hypomagnesemia; I10 Essential (primary) hypertension; K21.9 Gastro-esophageal reflux disease without esophagitis; E03.9 Hypothyroidism, unspecified; D69.6 Thrombocytopenia, unspecified; M34.9 Systemic sclerosis, unspecified; I48.91 Unspecified atrial fibrillation; M79.645 Pain in left finger(s); Z79.4 Long term (current) use of insulin; Z79.01 Long term (current) use of anticoagulants; Z88.6 Allergy status to analgesic agent; Z88.8 Allergy status to other drugs, medicaments and biological substances; Z79.899 Other long term (current) drug therapy; Z88.2 Allergy status to sulfonamides; Z95.0 Presence of cardiac pacemaker
CPT/HCPCS: 36000; 36415; 80048; 80053; 81001; 82009; 82962; 83036; 83735; 84443; 85025; 85610; 99285; A9270-GY; J1815-GY; J3475; J7030

== ENCOUNTER 2023-01-04 18:10 | Emergency (ER) | payer MEDICARE, BC ==
[2023-01-04 18:19] VITALS: BP 175/101; PULSE 112
[2023-01-04 18:54] LABS: BASOPHILS ABSOLUTE AUTO 0.03 K/uL (0.00-0.20); BASOPHILS PERCENT AUTO 0.4 % (0.0-2.0); EOSINOPHILS ABSOLUTE AUTO 0.12 K/uL (0.00-0.50); EOSINOPHILS PERCENT AUTO 1.6 % (0.0-5.0); HEMATOCRIT 43.4 % (34.0-46.0); HEMOGLOBIN 14.9 g/dL (11.7-15.5); LYMPHOCYTES ABSOLUTE AUTO 1.96 K/uL (0.50-3.50); LYMPHOCYTES PERCENT AUTO 25.5 % (10.0-50.0); MEAN CORPUSCULAR HEMOGLOBIN 26.3 pg (28.2-33.3); MEAN CORPUSCULAR HGB CONC 34.3 g/dL (31.7-36.0); MEAN CORPUSCULAR VOLUME 76.5 fL (84.0-98.0); MONOCYTES ABSOLUTE AUTO 0.54 K/uL (0.00-1.00); NEUTROPHILS ABSOLUTE AUTO 5.04 K/uL (1.40-7.00); NEUTROPHILS PERCENT AUTO 65.5 % (45.0-80.0); PLATELET COUNT,PLT 136 K/uL (150-350); RED BLOOD CELL COUNT 5.67 M/uL (3.77-5.09); RED CELL DISTRIBUTION WIDTH 14.2 % (11.2-14.1); WHITE BLOOD CELL COUNT,WBC 7.7 K/uL (4.0-10.2)
[2023-01-04 18:56] LABS: APPEARANCE,URINE CLEAR; BILIRUBIN,URINE NEGATIVE (NEGATIVE); COLOR,URINE YELLOW; GLUCOSE,URINE NEGATIVE (NEGATIVE); KETONES,URINE NEGATIVE (NEGATIVE); LEUKOCYTE ESTERASE,URINE NEGATIVE (NEGATIVE); NITRITE,URINE NEGATIVE (NEGATIVE); OCCULT BLOOD,URINE TRACE-INTACT (NEGATIVE); PROTEIN,URINE >=300 mg/dL (NEGATIVE); UROBILINOGEN,URINE 0.2 E.U./dL (0.2-1.0)
[2023-01-04 19:06] LABS: EPITHELIAL CELLS,URINE FEW /LPF; RBC,URINE 0-5 /HPF; WBC,URINE 0-5 /HPF
[2023-01-04 19:08] LABS: ALANINE AMINOTRANSFERASE,ALT 15 U/L (12-78); ALKALINE PHOSPHATASE 92 IU/L (46-116); ANION GAP 10.8 meq/L (7-15); ASPARTATE AMNIOTRANSFERASE,AST 22 U/L (15-37); BILIRUBIN TOTAL 0.5 mg/dL (0.2-1.0); BLOOD UREA NITROGEN,BUN 26 mg/dL (7-18); CALCIUM 9.7 mg/dL (8.5-10.1); CARBON DIOXIDE,CO2 32.8 mmol/L (21.0-32.0); CHLORIDE,CL 92 mmol/L (98-107); CREATININE 0.75 mg/dL (0.51-1.17); ESTIMATED GFR 81 mL/min (>=60); GLUCOSE RANDOM 198 mg/dL (70-99); POTASSIUM,K 3.6 mmol/L (3.5-5.1); PROTEIN TOTAL,TP 8.1 g/dL (6.4-8.2); SODIUM,NA 132 mmol/L (136-145)
[2023-01-04] MEDS: Take Home: predniSONE 20 MG, 4 Tab Pack PO ONE (19:22)
[2023-01-04] MEDS: Take Home: traMADol 50 MG, 4 Tab Pack PO ONE (19:22)
[2023-01-04] MEDS: Take Home: Cyclobenzaprine 10 MG Tab, 4 Tab Pack PO ONE (19:22)
[2023-01-04] MEDS: Take Home: predniSONE 20 MG, 4 Tab Pack ONE (19:23)
[2023-01-04] MEDS: Take Home: traMADol 50 MG, 4 Tab Pack ONE (19:23)
[2023-01-04] MEDS: Take Home: Cyclobenzaprine 10 MG Tab, 4 Tab Pack ONE (19:23)
== END 2023-01-04 19:25 | disposition home or self-care (01) ==
LOC: LL.ED 18:10
DX: M54.6 Pain in thoracic spine (principal); E11.9 Type 2 diabetes mellitus without complications; E03.9 Hypothyroidism, unspecified; I48.91 Unspecified atrial fibrillation; I10 Essential (primary) hypertension; Z88.6 Allergy status to analgesic agent; Z88.8 Allergy status to other drugs, medicaments and biological substances; Z88.1 Allergy status to other antibiotic agents; Z79.899 Other long term (current) drug therapy; Z79.01 Long term (current) use of anticoagulants; Z79.4 Long term (current) use of insulin; X50.9XXA Other and unspecified overexertion or strenuous movements or postures, initial encounter
CPT/HCPCS: 36415; 80053; 81001; 85025; 99283; 99284; A9270-GY